=== PATIENT | male | born 1940 | race Caucasian/White ===

== ENCOUNTER 2016-12-06 20:06 | Inpatient (IN) ==
[2016-12-06] MEDS ORDERED: HUMULIN R (PARKWAY) SUBQ ONE (20:23)
--- NOTE | 2016-12-06 20:32 | EKG Report ---
Test Performed on : 12/06/2016 8:30:00 PM Test Reason : pain Blood Pressure : / mmHG Vent. Rate : 142 BPM Atrial Rate : 144 BPM P-R Int : 190 ms QRS Dur : 072 ms QT Int : 296 ms P-R-T Axes : 052 014 152 degrees QTc Int : 455 ms Sinus tachycardia. Septal infarct , age undetermined ST \T\ T wave abnormality, consider anterior ischemia Abnormal ECG No previous ECGs available Unconfirmed Result
[2016-12-06] MEDS ORDERED: LEVAQUIN 750 MG in NS 150 ML IV ONE (20:40)
[2016-12-06] MEDS: NS 1,000 ML IV PRN (20:42)
[2016-12-06] MEDS ORDERED: ROCEPHIN 1 GM/NS 1 GM/50 ML IVPB IV ONE (20:49)
[2016-12-06 20:51] LABS: BASO% 1.7 % (0.0-0.8); EOS# 0.06 X1000 (0.0-0.7); EOS% 0.4 % (0.0-10.0); HEMATOCRIT 35.5 % (42.0-52.0); HEMOGLOBIN 12.1 g/dL (14.0-18.0); IMM GRAN# 0.72 X1000 (0.0-0.04); IMM GRAN% 4.8 % (0.0-0.5); LYMPH# 1.62 X1000 (1.2-3.4); LYMPH% 10.8 % (20.5-51.1); MANUAL DIFF NEEDED? YES; MCH 31.8 PG (27-31); MCHC 34.1 g/dL (33-37); MCV 93.2 FL (81-99); MONO# 1.22 X1000 (0.11-0.59); MONO% 8.2 % (1.7-9.3); NEUT% 74.1 % (42.2-75.2); PLT 334 X1000 (130-400); RBC 3.81 XMIL (4.7-6.1)
[2016-12-06 20:58] LABS: HEMOGLOBIN A1C 7.9 % (4.8-6.0)
[2016-12-06 21:11] LABS: BANDS 4 % (0-1); EOS 1 % (1-10); LYMPHS 8 % (21-51); MONO 6 % (1-9)
[2016-12-06 21:13] LABS: ALBUMIN 2.9 g/dL (3.5-5.0); CALCIUM 9.4 mg/dL (8.8-10.2); LARGE PLATELETS OCCASIONAL; POTASSIUM 4.6 mmol/L (3.5-5.1); TOTAL BILIRUBIN 0.8 mg/dL (0.20-1.00); TOTAL PROTEIN 6.9 g/dL (6.3-8.3)
[2016-12-06] MEDS ORDERED: NS 250 ML IV ONE (22:04)
[2016-12-06] MEDS ORDERED: ZOFRAN IV PRN (22:11)
[2016-12-06] MEDS ORDERED: HUMULIN R (PARKWAY) IV ONE (22:11)
[2016-12-06] MEDS ORDERED: TYLENOL PO PRN (22:11)
[2016-12-06 22:21] LABS: BE -8.3 mmoll (-3.0-3.0); BLOOD TYPE ARTERIAL; DRAW SITE L RADIAL; O2(CT) 14.5 mL/dL (15.0-23.0); PCO2(98.6) 34 mmHg (35-45); PO2(98.6) 67 mmHg (60-100); SAMPLE BLOOD; SAO2 95.4 % (95.0-100.0); THB 11.2 g/dL (11.5-17.4); pH(98.6) 7.31 (7.35-7.45)
[2016-12-06 22:24] LABS: MODALITY CANNULA
[2016-12-06 22:25] LABS: ALLEN TEST YES
--- NOTE | 2016-12-07 00:10 | EKG Report ---
Test Performed on : 12/06/2016 11:11:40 PM Test Reason : elevated heart rate Blood Pressure : / mmHG Vent. Rate : 153 BPM Atrial Rate : 153 BPM P-R Int : 168 ms QRS Dur : 070 ms QT Int : 298 ms P-R-T Axes : 054 024 269 degrees QTc Int : 475 ms Sinus tachycardia. Marked ST abnormality, possible inferior subendocardial injury Abnormal ECG When compared with ECG of 06-DEC-2016 20:30, T wave inversion now evident in Inferior leads T wave inversion more evident in Anterior leads Confirmed by Rod Holloway MD ([id number]) on 12/23/2016 10:11:59 PM
[2016-12-07] MEDS: NS 1,000 ML IV PRN ×2 (01:12→07:21)
--- NOTE | 2016-12-07 06:12 | Diag Imaging Result Document ---
PROCEDURE NAME: CHEST-2 VIEWS - 12/06/2016 FRONTAL AND LATERAL CHEST, 2 VIEWS: COMPARISON: No comparison films. FINDINGS: There are dense infiltrates throughout the mid and lower right lung. The left lung is well expanded and clear. There is an increased AP diameter to the chest. No pleural effusions. There is a calcified granuloma anteriorly on the lateral chest. IMPRESSION: 1. Right-sided pneumonia, questionable trace right pleural fluid. 2. Emphysema.
[2016-12-07 06:51] LABS: AGAP 14; BUN 34 mg/dL (8-22); CALCIUM 8.8 mg/dL (8.8-10.2); CHLORIDE 99 mmol/L (98-107); COSMO 286; POTASSIUM 4.4 mmol/L (3.5-5.1); SODIUM 134 mmol/L (136-145); TCO2 21 mmol/L (25-35)
--- NOTE | 2016-12-07 13:29 | EKG Report ---
Test Performed on : 12/07/2016 1:20:07 PM Test Reason : cp Blood Pressure : / mmHG Vent. Rate : 105 BPM Atrial Rate : 105 BPM P-R Int : 168 ms QRS Dur : 080 ms QT Int : 304 ms P-R-T Axes : 070 053 182 degrees QTc Int : 401 ms Sinus tachycardia. Possible Anterior infarct , age undetermined Abnormal ECG When compared with ECG of 06-DEC-2016 23:11, (Unconfirmed) Borderline criteria for Anterior infarct are now present ST no longer depressed in Inferior leads ST no longer depressed in Anterior leads Nonspecific T wave abnormality has replaced inverted T waves in Inferior leads Nonspecific T wave abnormality has replaced inverted T waves in Anterolateral leads Confirmed by Rod Holloway MD ([id number]) on 12/23/2016 10:10:59 PM
[2016-12-07] MEDS ORDERED: TYLENOL WITH CODEINE #3 PO SCH (13:30)
[2016-12-07] MEDS: LANTUS INSULIN (PARKWAY) SUBQ SCH (13:33)
[2016-12-07] MEDS: PRINIVIL PO SCH (13:33)
[2016-12-07] MEDS: LOVENOX SUBQ SCH (13:33)
[2016-12-07] MEDS: TYLENOL WITH CODEINE #3 PO PRN (13:33)
[2016-12-07] MEDS: ZITHROMAX 500 MG/NS 500 MG/250 ML IVPB IV SCH (13:34)
[2016-12-07] MEDS: HUMULIN R DOSE (PARKWAY) SUBQ SCH ×3 (15:55→21:02)
--- NOTE | 2016-12-07 16:38 | HISTORY AND PHYSICAL ---
CHIEF COMPLAINT: Shortness of breath and confusion, elevated blood sugar. HISTORY OF PRESENT ILLNESS: Apparently he had been diagnosed with pneumonia as an outpatient on Wednesday and he started acting abnormally couple nights before admission and we had progressive tachycardia so he was brought in for evaluation. Initial vitals here showed tachycardia in the 150, normal blood pressure. Sugar was actually above 400 initially and clinically looked like he had early diabetic ketoacidosis. I think he was given some IV insulin but he was not started on a drip. After hydration and some further insulin his blood sugars have improved somewhat. He was also found to have a right lower lobe pneumonia and was admitted as such. PAST MEDICAL HISTORY: 1. Reported type 2 diabetes but he is not on any regular medications. 2. Hypertension. 3. Recurrent pneumonia, I believe this is his 3rd or 4th episode. 4. Parkinsonism. 5. BPH. 6. Hypertension. PAST SURGICAL HISTORY: None reported. ALLERGIES: No known drug allergies. SOCIAL HISTORY: He smoked about half a pack a day for over 50 years. He smoked more than that in the past at least a 25 pack-year history. He has 1 or 2 beers per evening. No other drug history. MEDICATIONS: He currently takes Tylenol with codeine No. 3 one p.o. q.6, Lipitor 10 daily, Sinemet 25/100 daily, Lasix 40 daily, guaifenesin 400 b.i.d., hydrochlorothiazide 25 daily, metoprolol 12.5 b.i.d., Prilosec 20 daily, Hytrin 2 daily. REVIEW OF SYSTEMS: Otherwise negative times a 10 point review of systems. PHYSICAL EXAMINATION: VITAL SIGNS: Blood pressure was 173/85, heart rate of 97, respiratory 29, temperature 98.4 degrees, 94% on 3 L. GENERALLY: Thin male, no acute distress. HEENT: Pupils equal, round, reactive to light. Extraocular movements were intact. He had poor dentition. O and P look dry. NECK: Exam was supple, no thyromegaly. CARDIOVASCULAR: Regular rate and rhythm. PULMONARY: Bilateral breath sounds with diminished throughout, rales at the right and left base although more prominent at the right base. GI: Soft, nontender, nondistended. Bowel sounds are positive. EXTREMITIES: No clubbing or cyanosis. He had trace edema. SKIN EXAM: He had chronic venous changes to his lower extremities or brawny changes consistent with chronic venous stasis. He had onychomycosis. NEURO: Was overall unremarkable. LABORATORY DATA: White count of 14, hemoglobin and hematocrit 12 and 35. CMP looked okay, pH 7.31, pCO2 36, PaO2 67, acetone level was moderate. Chest x-ray showed right lower lobe airspace disease with possible effusion. PROBLEM LIST: This is a 75-year-old male with history of diabetes, hypertension presenting with pneumonia and diabetic ketoacidosis at least initially that has since resolved. 1. Right lower lobe pneumonia, possibly some upper lobe changes as well. We will continue Rocephin, add azithromycin. Continue pulmonary toilet and follow clinically. Will need DVT and GI prophylaxis. Will evaluate with speech therapy to evaluate for dysphagia since this was a recurrent pneumonia issue. 2. Uncontrolled diabetes. Unclear if he is on regular medications but we will initiate Lantus and follow. The DKA portion has resolved. 3. Parkinsonism. Continue Sinemet and follow. 4. Hypertension. Will add ASHLEY inhibitor and monitor his renal function. 5. Acute kidney injury. Will continue IV fluids and monitor urine output. Again that has resolved. 6. Disposition pending his clinical course. This is a [facility] patient. cc: Joss Bronson MD
[2016-12-07] MEDS: ROCEPHIN 1 GM/NS 1 GM/50 ML IVPB IV SCH (21:02)
[2016-12-07] MEDS: LIPITOR PO SCH (21:02)
[2016-12-07] MEDS: MUCINEX PO SCH (21:02)
[2016-12-07] MEDS: LOPRESSOR PO SCH (21:02)
[2016-12-08] MEDS: NS 1,000 ML IV PRN ×2 (01:01→21:04)
[2016-12-08] MEDS: PRILOSEC PO SCH (06:18)
[2016-12-08] MEDS: HUMULIN R DOSE (PARKWAY) SUBQ SCH ×4 (06:18→21:04)
[2016-12-08 06:27] LABS: HEMATOCRIT 33.4 % (42.0-52.0); HEMOGLOBIN 11.4 g/dL (14.0-18.0); MCH 31.4 PG (27-31); MCHC 34.1 g/dL (33-37); MPV 10.9 FL (7.4-10.4); RBC 3.63 XMIL (4.7-6.1)
[2016-12-08 06:29] LABS: AGAP 14; BUN 19 mg/dL (8-22); CALCIUM 8.6 mg/dL (8.8-10.2); CHLORIDE 104 mmol/L (98-107); COSMO 285; POTASSIUM 4.4 mmol/L (3.5-5.1); SODIUM 139 mmol/L (136-145); TCO2 21 mmol/L (25-35)
[2016-12-08] MEDS: LOPRESSOR PO SCH ×2 (08:31→22:45)
[2016-12-08] MEDS: HYTRIN PO SCH (08:31)
[2016-12-08] MEDS: MUCINEX PO SCH ×2 (08:32→21:03)
[2016-12-08] MEDS: PRINIVIL PO SCH (08:32)
[2016-12-08] MEDS: LANTUS INSULIN (PARKWAY) SUBQ SCH (08:32)
[2016-12-08] MEDS: SINEMET 25/100 PO SCH (08:32)
--- NOTE | 2016-12-08 08:53 | PROGRESS NOTE ---
DATE: 12/08/2016 SUBJECTIVE: The patient notes that he is feeling better. He is having less cough. He is still short of breath. Notes that he gets tired even moving around in the bed. OBJECTIVE/PHYSICAL EXAMINATION: Vital signs: Temp 97, pulse 98, respiratory 27 to 38, BP 155/74, sat 94% on 3 L. General: The patient is awake, alert. He is currently in moderate respiratory distress. He is pleasant to talk with. Neck: Supple. CV: Regular rate. Chest: Decreased breath sounds but equal bilaterally, no wheezing noted. Abdomen: Soft, nondistended. Extremities: He moves all extremities. Neurological: No changes. LABS: WBC is 13. CMP essentially normal. ASSESSMENT: 1. Diabetic ketoacidosis appears resolved. Blood sugars in the 198-200 range. 2. Right lower lobe pneumonia. 3. Hypoxic respiratory failure. 4. Parkinsonism. 5. Hypertension. 6. Acute kidney injury, resolved, creatinine back to his baseline. PLAN: Will keep patient in the ICU today. Will continue to follow. Continue pulmonary toilet. Continue antibiotics. Certainly would want to place him on steroids. However, given his recent DKA, this is not a good option. We will continue to follow. Further orders as needed. cc: Johnny Perez MD
[2016-12-08] MEDS: ZITHROMAX 500 MG/NS 500 MG/250 ML IVPB IV SCH (12:15)
[2016-12-08] MEDS: LOVENOX SUBQ SCH (12:43)
[2016-12-08] MEDS ORDERED: ADENOCARD ONE ×2 (17:19→17:31)
[2016-12-08] MEDS ORDERED: LOPRESSOR PO SCH ×3 (18:00→20:00)
[2016-12-08] MEDS ORDERED: ADENOCARD IV ONE ×2 (18:05)
--- NOTE | 2016-12-08 18:16 | EKG Report ---
Test Performed on : 12/08/2016 5:13:39 PM Test Reason : tachycardia Blood Pressure : / mmHG Vent. Rate : 172 BPM Atrial Rate : 174 BPM P-R Int : 000 ms QRS Dur : 068 ms QT Int : 268 ms P-R-T Axes : 000 060 264 degrees QTc Int : 453 ms Supraventricular tachycardia. Marked ST abnormality, possible inferior subendocardial injury Marked ST abnormality, possible anteroseptal subendocardial injury Abnormal ECG When compared with ECG of 07-DEC-2016 13:20, (Unconfirmed) Vent. rate has increased BY [address] now depressed in Inferior leads ST now depressed in Anterior leads Inverted T waves have replaced nonspecific T wave abnormality in Inferior leads Inverted T waves have replaced nonspecific T wave abnormality in Anterolateral leads Confirmed by Rod Holloway MD ([id number]) on 12/23/2016 10:10:05 PM
--- NOTE | 2016-12-08 18:19 | EKG Report ---
Test Performed on : 12/08/2016 5:35:46 PM Test Reason : svt Blood Pressure : / mmHG Vent. Rate : 171 BPM Atrial Rate : 171 BPM P-R Int : 000 ms QRS Dur : 072 ms QT Int : 230 ms P-R-T Axes : 000 068 248 degrees QTc Int : 387 ms Supraventricular tachycardia. Marked ST abnormality, possible inferior subendocardial injury Marked ST abnormality, possible anterior subendocardial injury Abnormal ECG When compared with ECG of 08-DEC-2016 17:13, (Unconfirmed) No significant change was found Confirmed by Rod Holloway MD ([id number]) on 12/23/2016 10:09:52 PM
--- NOTE | 2016-12-08 18:19 | EKG Report ---
Test Performed on : 12/08/2016 5:51:23 PM Test Reason : convert svt Blood Pressure : / mmHG Vent. Rate : 117 BPM Atrial Rate : 117 BPM P-R Int : 162 ms QRS Dur : 072 ms QT Int : 320 ms P-R-T Axes : 071 069 -54 degrees QTc Int : 446 ms Sinus tachycardia. with premature supraventricular complexes. Marked ST abnormality, possible inferior subendocardial injury Abnormal ECG When compared with ECG of 08-DEC-2016 17:35, (Unconfirmed) premature supraventricular complexes. are now present Nonspecific T wave abnormality has replaced inverted T waves in Inferior leads Confirmed by Rod Holloway MD ([id number]) on 12/23/2016 10:09:44 PM
[2016-12-08] MEDS ORDERED: LOVENOX SUBQ ONE (18:45)
[2016-12-08] MEDS: ROCEPHIN 1 GM/NS 1 GM/50 ML IVPB IV SCH (21:03)
[2016-12-08] MEDS: LIPITOR PO SCH (21:03)
[2016-12-09 06:24] LABS: HEMATOCRIT 33.5 % (42.0-52.0); HEMOGLOBIN 11.4 g/dL (14.0-18.0); MCH 31.4 PG (27-31); MCV 92.3 FL (81-99); MPV 11.1 FL (7.4-10.4); RBC 3.63 XMIL (4.7-6.1)
[2016-12-09] MEDS: LOPRESSOR PO SCH ×5 (06:27→23:35)
[2016-12-09] MEDS: HUMULIN R DOSE (PARKWAY) SUBQ SCH ×4 (06:28→20:59)
[2016-12-09] MEDS: PRILOSEC PO SCH (06:28)
[2016-12-09 06:51] LABS: AGAP 14; BUN 12 mg/dL (8-22); CALCIUM 8.3 mg/dL (8.8-10.2); CHLORIDE 101 mmol/L (98-107); COSMO 281; MAGNESIUM 1.5 mg/dL (1.5-2.7); POTASSIUM 4.3 mmol/L (3.5-5.1); SODIUM 137 mmol/L (136-145); TCO2 22 mmol/L (25-35)
--- NOTE | 2016-12-09 07:24 | EKG Report ---
Test Performed on : 12/09/2016 07:22:17 AM Test Reason : tachycardia Blood Pressure : / mmHG Vent. Rate : 152 BPM Atrial Rate : 147 BPM P-R Int : 000 ms QRS Dur : 066 ms QT Int : 268 ms P-R-T Axes : 000 006 263 degrees QTc Int : 426 ms Atrial fibrillation. with rapid ventricular response. Marked ST abnormality, possible inferior subendocardial injury Marked ST abnormality, possible anterior subendocardial injury Abnormal ECG When compared with ECG of 08-DEC-2016 17:51, (Unconfirmed) Atrial fibrillation. has replaced Sinus rhythm. Questionable change in QRS axis ST more depressed in Inferior leads Inverted T waves have replaced nonspecific T wave abnormality in Inferior leads T wave inversion more evident in Anterior leads Confirmed by Rod Holloway MD ([id number]) on 12/23/2016 10:08:59 PM
[2016-12-09] MEDS ORDERED: CARDIZEM IV ONE (07:45)
--- NOTE | 2016-12-09 08:26 | PROGRESS NOTE ---
DATE: 12/09/2016 SUBJECTIVE: The patient had a significant episode yesterday of multifocal PVCs, multifocal atrial fibrillation. He was given adenosine and seemed to convert. He has been watched overnight. He did not have any further episodes until early this morning. He currently denies any chest pain or palpitations. Denies any shortness of breath. States that he is feeling okay. PHYSICAL EXAMINATION: Vital Signs: Temperature 97.3, pulse 81, respiratory rate 13, BP 158/73, saturations 95% on 3 L. General: Patient is awake, alert. He is in no distress. CV: Regular rate, although shortly after the initial exam, was noted to be irregular rate, irregular rhythm with a heart rate of 180 as opposed to where he was all night in the low 70s to mid 80s. Chest: Decreased breath sounds but equal bilaterally. Abdomen: Soft. Extremities: Moves all extremities. Neurologic: no changes. LABS: Reviewed. Cardiac enzymes this a.m. with a total CK at 28 and a troponin at 0.017. ASSESSMENT: 1. Atrial fibrillation with rapid ventricular response. He was given 1 dose of oral Cardizem. If this does not get his heart rate back under control, then we will start him on a Cardizem drip. 2. Right lower lobe pneumonia, likely contributing to his atrial fibrillation. 3. Uncontrolled diabetes. 4. Parkinsonism. 5. Hypertension. 6. Acute kidney injury, resolved. 7. Diabetes. PLAN: We will continue to follow. I appreciate cardiology's input. Continue antibiotics. Further orders as needed. cc: Johnny Perez MD
[2016-12-09] MEDS: LANTUS INSULIN (PARKWAY) SUBQ SCH (09:12)
[2016-12-09] MEDS: SINEMET 25/100 PO SCH (09:12)
[2016-12-09] MEDS: CARDIZEM 100 MG/NS 100 MG/100 ML IVPB IV SCH ×2 (09:12→15:17)
[2016-12-09] MEDS: MUCINEX PO SCH ×2 (09:12→21:00)
[2016-12-09] MEDS ORDERED: LANOXIN IV ONE (11:26)
[2016-12-09] MEDS: ZITHROMAX 500 MG/NS 500 MG/250 ML IVPB IV SCH (13:17)
--- NOTE | 2016-12-09 17:24 | CONSULTATION ---
DATE OF CONSULTATION: 12/09/2016 INDICATION: Arrhythmia. HISTORY OF PRESENT ILLNESS: Mr. Schulz is a 75-year-old, white male with a history of diabetes, hypertension. He presented for evaluation of shortness of breath as well as confusion. He apparently had an outpatient diagnosis of pneumonia and issues with tachycardia at home. Since presentation, he has been put on antibiotics and actually feels like his breathing has improved. He had developed some issues with tachycardia during this hospitalization and was initiated on a diltiazem infusion as well as receiving some doses of adenosine. Since developing that narrow complex tachycardia, he has converted back into a sinus rhythm. That was around 4:30 this afternoon. The patient denies any episodic heart racing. No palpitations. Again, he said during this entire time period, his breathing has actually improved. He has not been febrile during this hospitalization. He is not having any chest pain. He is tolerating oral intake. PAST MEDICAL HISTORY: 1. Significant for likely type 2 diabetes. 2. Hypertension. 3. Issues with pneumonia. 4. Parkinson's. 5. BPH. 6. Hypertension. SOCIAL HISTORY: is present at bedside. He smokes around half a pack a day for around 50 years. He drinks 1-2 beers in the evening. No other drug history that he is aware of. REVIEW OF SYSTEMS: A 10 system review of systems is negative except for those things mentioned in HPI. PHYSICAL EXAMINATION: Vital Signs: During this hospitalization he has been afebrile. His heart rate most recently was in the 70s. He appears to be in sinus currently but prior to this he has had heart rates up as high as into the 170s and since early this morning, his heart rates have been in the 150-160s frequently. His blood pressure is 128/57. General: He is in no acute distress. He is very pleasant. HEENT: Oropharynx is moist. Normal dentition. His eye examination is pink. Conjunctivae white sclerae. Neck: Examination shows no obvious thyromegaly or thyroid tenderness. Cardiovascular: He sounds to be in a regular rate and rhythm. He has trace bilateral lower extremity edema with warm and well-perfused extremities. He has evidence for chronic venous stasis with skin changes noted. His JVP does not appear to be elevated. Chest: Notable for basilar rales bilaterally. No increased work of breathing. Abdomen: Soft, nontender, nondistended. He has no obvious organomegaly. Skin Exam: Warm and dry throughout without any rashes. Neurological: He is moving all extremities well. He is nonfocal. He has no lateralizing deficits. Psychiatric: He is alert, oriented, pleasant. He has normal mood and affect. PERTINENT DATA: He had a chest x-ray performed on the demonstrating a right-sided pneumonia with questionable trace right-sided pleural fluid. Emphysema is present. His EKGs were reviewed and showed narrow complex tachycardia, suggestion of atrial fibrillation. He also had telemetry strips with the administration of adenosine, and did not appear to have any appreciable organized atrial activity during those infusions. His white count is 11.8, his hematocrit is 32.5, his white platelet count is 321. Sodium 137, potassium 4.3, BUN 12, creatinine 0.6. Mag level is 1.5. His troponin is 0.017. ASSESSMENT: 1. Supraventricular arrhythmia, likely atrial fibrillation. 2. Pneumonia. PLAN: Patient has converted over into sinus. I will continue him on the infusion overnight and change it over to oral at 180 mg long-acting. We will continue him on his metoprolol for now. Given his history of age greater than 75, hypertension and diabetes, he has at least a CHADS-VASc score of 4. We will consider initiating oral anticoagulation in the future. I have ordered an echo. I will order a TSH as well. I would continue with rate-controlling medicines as you have him presently. cc: Gaetano Spicer MD
[2016-12-09] MEDS: LOVENOX SUBQ SCH (17:37)
--- NOTE | 2016-12-09 18:17 | EKG Report ---
Test Performed on : 12/09/2016 4:28:00 PM Test Reason : rhythm change Blood Pressure : / mmHG Vent. Rate : 070 BPM Atrial Rate : 070 BPM P-R Int : 140 ms QRS Dur : 070 ms QT Int : 406 ms P-R-T Axes : 065 026 -49 degrees QTc Int : 438 ms Sinus rhythm. with premature atrial complexes. ST \T\ T wave abnormality, consider anterior ischemia Abnormal ECG When compared with ECG of 09-DEC-2016 07:22, (Unconfirmed) Sinus rhythm. has replaced Atrial fibrillation. Vent. rate has decreased BY [address] less depressed in Inferior leads ST no longer depressed in Anterolateral leads Nonspecific T wave abnormality has replaced inverted T waves in Inferior leads Confirmed by Rod Holloway MD ([id number]) on 12/23/2016 10:08:31 PM
[2016-12-09] MEDS: LIPITOR PO SCH (21:00)
[2016-12-09] MEDS: ROCEPHIN 1 GM/NS 1 GM/50 ML IVPB IV SCH (21:00)
[2016-12-10] MEDS: LOPRESSOR PO SCH ×4 (05:28→22:39)
[2016-12-10] MEDS: HUMULIN R DOSE (PARKWAY) SUBQ SCH ×4 (06:28→20:22)
--- NOTE | 2016-12-10 06:36 | EKG Report ---
Test Performed on : 12/10/2016 05:57:52 AM Test Reason : A.FIB PROTOCOL Blood Pressure : / mmHG Vent. Rate : 077 BPM Atrial Rate : 077 BPM P-R Int : 134 ms QRS Dur : 074 ms QT Int : 394 ms P-R-T Axes : 000 047 -57 degrees QTc Int : 445 ms Sinus rhythm. with occasional premature ventricular complexes. and premature atrial complexes. ST \T\ T wave abnormality, consider anterior ischemia Abnormal ECG When compared with ECG of 09-DEC-2016 16:28, (Unconfirmed) premature ventricular complexes. are now present Confirmed by Rod Holloway MD ([id number]) on 12/23/2016 10:08:18 PM
[2016-12-10] MEDS: PRILOSEC PO SCH (06:42)
--- NOTE | 2016-12-10 08:43 | PROGRESS NOTE ---
DATE: 12/10/2016 SUBJECTIVE: The patient notes that he is feeling much better this morning. Notes that his breathing is easier. He denies any chest pain, palpitations. He denies any fevers, chills over night. PHYSICAL: Temperature 98, pulse 82, respiratory 27. BP 187/85. Saturation 97% on 30% venturi mask. HEENT: Normocephalic. Neck: Supple. CV: Regular rate. No appreciable murmurs. Chest: Much more clear although decreased breath sounds bilaterally. Abdomen soft. Extremities: Moves all extremities. Neurologic: No changes. LABORATORY DATA: Pending. ASSESSMENT: 1. Atrial fibrillation with rapid ventricular rate. Currently, the patient is back to sinus rhythm. We will stop his diltiazem. We will only place him on Cardizem CD 120 as he has been on 2 mics of Cardizem overnight. 2. High cholesterol. 3. Chronic obstructive pulmonary disease with moderate exacerbation. 4. Right lower lobe pneumonia. Continue antibiotics. 5. Acute kidney injury, stable. 6. Hypertension. 7. Parkinsonism. PLAN: As noted above. We will change him over to Cardizem, continue sliding scale insulin. Further orders as needed. cc: Johnny Perez MD
[2016-12-10] MEDS ORDERED: CARDIZEM CD PO SCH (09:00)
[2016-12-10] MEDS: TYLENOL WITH CODEINE #3 PO PRN ×3 (09:04→22:39)
[2016-12-10] MEDS: MUCINEX PO SCH ×2 (09:04→20:22)
[2016-12-10] MEDS: SINEMET 25/100 PO SCH (09:04)
[2016-12-10] MEDS: LANTUS INSULIN (PARKWAY) SUBQ SCH (09:05)
[2016-12-10] MEDS: PRINIVIL PO SCH (11:22)
[2016-12-10] MEDS: ELIQUIS PO SCH ×2 (11:22→20:22)
[2016-12-10] MEDS: ZITHROMAX 500 MG/NS 500 MG/250 ML IVPB IV SCH (13:57)
--- NOTE | 2016-12-10 15:42 | ECHO REPORT ---
ORDER DATE: 12/10/2016 INDICATIONS: Atrial fibrillation. FINDINGS: 1. Right atrium appears normal in size at 3.4 cm. 2. Trace tricuspid regurgitation. RV systolic pressure of 25. 3. Normal RV size and systolic function. 4. No significant pulmonic insufficiency. 5. Mild left atrial enlargement at 4.6 cm. 6. No mitral prolapse. Trace mitral regurgitation. 7. Normal LV size, end-diastolic dimension of 4.6. Suggestion of borderline left ventricular hypertrophy with a posterior and interventricular septal wall thickness of 1.1 and 1.3 cm, respectively. Normal to hyperdynamic LV systolic function. The estimated EF is greater than 70%. No obvious segmental wall motion abnormalities. 8. Aortic valve opens well. No evidence of stenosis or insufficiency. 9. Aorta appears normal in visualized segments. 10. No pericardial effusion seen. cc: Gaetano Spicer MD
[2016-12-10] MEDS: NS 1,000 ML IV PRN (15:46)
[2016-12-10] MEDS: LOVENOX SUBQ SCH (18:10)
[2016-12-10] MEDS: LIPITOR PO SCH (20:22)
[2016-12-10] MEDS: ROCEPHIN 1 GM/NS 1 GM/50 ML IVPB IV SCH (20:23)
[2016-12-10] MEDS ORDERED: CARDIZEM PO ONE (21:00)
[2016-12-11] MEDS: NS 1,000 ML IV PRN (05:35)
[2016-12-11] MEDS: LOPRESSOR PO SCH ×4 (05:36→22:05)
[2016-12-11] MEDS: TYLENOL WITH CODEINE #3 PO PRN ×3 (05:43→20:47)
--- NOTE | 2016-12-11 05:56 | EKG Report ---
Test Performed on : 12/11/2016 05:38:01 AM Test Reason : A.FIB PROTOCOL Blood Pressure : / mmHG Vent. Rate : 065 BPM Atrial Rate : 065 BPM P-R Int : 146 ms QRS Dur : 076 ms QT Int : 494 ms P-R-T Axes : 065 057 059 degrees QTc Int : 513 ms Normal sinus rhythm. with sinus arrhythmia. T wave abnormality, consider anterolateral ischemia Prolonged QT Abnormal ECG When compared with ECG of 10-DEC-2016 05:57, (Unconfirmed) premature ventricular complexes. are no longer present premature atrial complexes. are no longer present QT has lengthened Confirmed by Rod Holloway MD ([id number]) on 12/23/2016 10:07:20 PM
[2016-12-11 05:58] LABS: HEMATOCRIT 32.4 % (42.0-52.0); HEMOGLOBIN 10.7 g/dL (14.0-18.0); MCH 31.3 PG (27-31); MCV 94.7 FL (81-99); MPV 10.8 FL (7.4-10.4); RBC 3.42 XMIL (4.7-6.1)
[2016-12-11 06:25] LABS: AGAP 10; ALBUMIN 2.5 g/dL (3.5-5.0); ALKALINE PHOSPHATASE 374 U/L (32-122); BUN 11 mg/dL (8-22); CHLORIDE 103 mmol/L (98-107); COSMO 279; GOT 45 U/L (10-34); GPT 42 U/L (10-44); MAGNESIUM 1.4 mg/dL (1.5-2.7); POTASSIUM 3.4 mmol/L (3.5-5.1); SODIUM 139 mmol/L (136-145); TCO2 26 mmol/L (25-35); TOTAL PROTEIN 5.7 g/dL (6.3-8.3)
[2016-12-11] MEDS: PRILOSEC PO SCH (07:00)
[2016-12-11] MEDS: HUMULIN R DOSE (PARKWAY) SUBQ SCH (07:00)
[2016-12-11] MEDS ORDERED: MAGNESIUM SULFATE 2 GM/S.W.I. 2 GM/50 ML IVPB IV ONE (08:17)
[2016-12-11] MEDS: ELIQUIS PO SCH ×2 (09:05→20:37)
[2016-12-11] MEDS: CARDIZEM CD PO SCH (09:06)
[2016-12-11] MEDS: LANTUS INSULIN (PARKWAY) SUBQ SCH (09:07)
[2016-12-11] MEDS: MUCINEX PO SCH ×2 (09:07→20:37)
[2016-12-11] MEDS: HYTRIN PO SCH (09:07)
[2016-12-11] MEDS: SINEMET 25/100 PO SCH (09:07)
[2016-12-11] MEDS: PRINIVIL PO SCH (09:07)
--- NOTE | 2016-12-11 09:15 | PROGRESS NOTE ---
DATE: 12/11/2016 SUBJECTIVE: The patient notes that he has an increased cough this morning. He is having some shortness of breath. He denies any chest pains or palpitations. He denies any fevers or chills. He denies any GI or issues otherwise. OBJECTIVE: Vital signs: Vital signs are reviewed. Temperature is 98, pulse 63, respiratory 20, blood pressure 128/59, and saturation 96% on 3 L. General: The patient is awake, alert, and currently in no respiratory distress. Speech appears regular. Memory appears much more intact than on previous exams. HEENT: Normocephalic. NECK: Supple. CV: Regular rate. Chest: Clear. Abdomen: Soft. Extremities: Moves all extremities. Neuro: No changes. LABS: Magnesium 1.4, glucose 132, potassium 3.4, and albumin 2.5. ASSESSMENT: 1. Moderate protein calorie malnutrition. 2. Hypomagnesemia. 3. Gram-negative rods in sputum. 4. Right lower lobe pneumonia likely secondary to the gram-negative rods. Continue to wait for culture. 5. Diabetes, much better controlled. 6. Parkinsonism. 7. Hypertension. 8. Acute hypoxic respiratory failure, continues to improve. 9. Atrial fibrillation, currently back to sinus rhythm. PLAN: We will continue to attempt to wean his oxygen. We will replace his magnesium and recheck in the a.m.. Cardiology has placed him on Eliquis therefore we will stop his Lovenox. His Cardizem has apparently been increased to 240 mg this morning from 180 mg yesterday. We will follow his heart rates closely as his heart rates have been in the low 60s and 50s. We will continue physical therapy. Hopefully home in the next few days. cc: Johnny Perez MD
[2016-12-11] MEDS: HUMULIN R (PARKWAY) SUBQ SCH ×3 (11:58→20:41)
[2016-12-11] MEDS: ZITHROMAX 500 MG/NS 500 MG/250 ML IVPB IV SCH (12:41)
[2016-12-11] MEDS: DUONEB (A & A) INH PRN (19:52)
[2016-12-11] MEDS: ROCEPHIN 1 GM/NS 1 GM/50 ML IVPB IV SCH (20:37)
[2016-12-11] MEDS: LIPITOR PO SCH (20:37)
[2016-12-12] MEDS: LOPRESSOR PO SCH ×3 (04:39→16:14)
[2016-12-12] MEDS: PRILOSEC PO SCH (06:07)
[2016-12-12] MEDS: HUMULIN R (PARKWAY) SUBQ SCH ×3 (06:08→16:13)
[2016-12-12 06:09] LABS: HEMATOCRIT 31.8 % (42.0-52.0); HEMOGLOBIN 10.2 g/dL (14.0-18.0); MCH 30.4 PG (27-31); MCHC 32.1 g/dL (33-37); MCV 94.9 FL (81-99); RBC 3.35 XMIL (4.7-6.1)
[2016-12-12 06:50] LABS: AGAP 9; ALBUMIN 2.3 g/dL (3.5-5.0); ALKALINE PHOSPHATASE 365 U/L (32-122); BUN 16 mg/dL (8-22); CALCIUM 8.1 mg/dL (8.8-10.2); CHLORIDE 105 mmol/L (98-107); COSMO 284; GOT 53 U/L (10-34); GPT 37 U/L (10-44); MAGNESIUM 1.9 mg/dL (1.5-2.7); SODIUM 139 mmol/L (136-145); TCO2 26 mmol/L (25-35); TOTAL PROTEIN 5.3 g/dL (6.3-8.3)
[2016-12-12] MEDS: DUONEB (A & A) INH PRN ×3 (07:43→15:19)
--- NOTE | 2016-12-12 08:05 | EKG Report ---
Test Performed on : 12/12/2016 04:13:47 AM Test Reason : A.FIB PROTOCOL Blood Pressure : / mmHG Vent. Rate : 060 BPM Atrial Rate : 060 BPM P-R Int : 162 ms QRS Dur : 072 ms QT Int : 414 ms P-R-T Axes : 073 046 -57 degrees QTc Int : 414 ms Normal sinus rhythm. ST \T\ T wave abnormality, consider anterior ischemia Abnormal ECG When compared with ECG of 11-DEC-2016 05:38, (Unconfirmed) QT has shortened Confirmed by Rod Holloway MD ([id number]) on 12/23/2016 10:07:03 PM
[2016-12-12] MEDS ORDERED: ZITHROMAX PO SCH (09:00)
[2016-12-12] MEDS ORDERED: LEVAQUIN PO SCH (09:15)
[2016-12-12] MEDS: MUCINEX PO SCH (09:25)
[2016-12-12] MEDS: ELIQUIS PO SCH (09:25)
[2016-12-12] MEDS: HYTRIN PO SCH (09:26)
[2016-12-12] MEDS: SINEMET 25/100 PO SCH (09:26)
[2016-12-12] MEDS: PRINIVIL PO SCH (09:26)
[2016-12-12] MEDS: TYLENOL WITH CODEINE #3 PO PRN (09:26)
[2016-12-12] MEDS: LANTUS INSULIN (PARKWAY) SUBQ SCH (09:27)
[2016-12-12] MEDS: CARDIZEM CD PO SCH (09:27)
[2016-12-12 15:47] VITALS: BP 109/54
--- NOTE | 2016-12-12 22:24 | DISCHARGE SUMMARY ---
ADMISSION DATE: 12/06/2016 DISCHARGE DATE: 12/12/2016 DISCHARGE DIAGNOSES: 1. Right lower lobe pneumonia improved. 2. Hypoxemia. 3. Diabetes better control. 4. Parkinsonism. 5. Hypertension. 6. Multifocal premature ventricular contractions with atrial fibrillation currently sinus rhythm on Cardizem. CONSULTATIONS: Dr. Spicer. PROCEDURES: None. BRIEF HOSPITAL COURSE: Patient is a 76-year-old male who was admitted as noted on the HPI. Treated in usual fashion. Placed on antibiotics. He did go into atrial fibrillation while he was in the hospital. He was converted back to sinus chemically with Cardizem, currently is on 240 of Cardizem daily as well as Eliquis 5. He thankfully had uneventful hospital course. He was able to continue to improve. On discharge he was alert, oriented, he was in no distress. He was ambulating the whalen without much difficulty. Blood sugars were better controlled in the 180 to low 200 range. DISPOSITION: The patient will be discharged home. Will continue calcium orally, continue Lantus 10 mg, Cardizem 240 once a day, Toprol 25 three times a day, Eliquis 5 mg twice daily, Lipitor 10 at bedtime and lisinopril 20. TIME SPENT: Thirty-five minutes was spent in discharge planning and instructions. FOLLOWUP=: He will follow up with his primary care in 1-2 weeks. cc: Johnny Perez MD
--- NOTE | 2016-12-23 01:53 | PROVIDER DOCUMENTATION ---
This chart was entered by Georgia Lua Scribe, acting as scribe for Casey Nguyễn MD. HPI-General Adult - General Chief Complaint: Shortness of Breath Stated Complaint: SOB Time Seen by Provider: 12/06/16 20:13 Source: patient Allergies/Adverse Reactions: Patient Allergies Allergy/AdvReac Type Severity Reaction Status Date / Time No Known Allergies Allergy Verified 12/07/16 08:01 Home Medications: Home Medication List Medication Instructions Recorded Confirmed Last Taken Type ATORVAstatin [Lipitor] 10 mg PO DAILY 12/06/16 12/06/16 Unknown History Acetaminophen with Codeine 1 each PO Q6H 12/06/16 12/06/16 Unknown History [Acetaminophen-Cod #3 Tablet] Carbidopa/Levodopa 1 dose PO DAILY 12/06/16 12/07/16 Unknown History [Carbidopa-Levodopa 25-100 Tab] Furosemide 40 mg PO DAILY PRN 12/06/16 12/06/16 Unknown History Guaifenesin 400 mg PO BID 12/06/16 12/06/16 Unknown History Hydrochlorothiazide 25 mg PO DAILY 12/06/16 12/06/16 Unknown History Metoprolol Tartrate 12.5 mg PO BID 12/06/16 12/06/16 Unknown History Terazosin [Hytrin] 2 mg PO QHS 12/06/16 12/07/16 Unknown History Amoxicillin/Pot Clavulanate 500 mg PO BID 12/07/16 12/07/16 Unknown History [Augmentin] Diclofenac 1% Gel [Voltaren 1% Gel] 2 gm TOP 4XDAY 12/07/16 12/07/16 Unknown History Omeprazole [Prilosec] 40 mg PO QAM 12/07/16 12/07/16 Unknown History Apixaban [Eliquis] 5 mg PO BID #60 tablet 12/12/16 Unknown Rx Diltiazem C.d. [Cardizem Cd] 240 mg PO DAILY #30 capsule 12/12/16 Unknown Rx Insulin Glargine,Hum.rec.anlog 10 unit SQ QHS #5 insuln.pen 12/12/16 Unknown Rx [Lantus Solostar] LISINOpril [Prinivil] 20 mg PO DAILY #30 tablet 12/12/16 Unknown Rx Levofloxacin [Levaquin] 500 mg PO DAILY #7 tablet 12/12/16 Unknown Rx Metoprolol [Lopressor] 25 mg PO Q8H #90 tablet 12/12/16 Unknown Rx - History of Present Illness -Gen Adult Nature of Presenting Problems: PT IS A 75YOM PRESENTING TO THE ED C/O AMS. PT IS BEING TREATED FOR PNEUMONIA AT THIS TIME. TODAY HE BECAME ALTERED. PT IS TACHYCARDIC WITH MILD SOB AND SWELLING. NO OTHER COMPLAINTS NOTED Location of Pain/Injury: reports: none Pain Radiation: reports: no radiation Quality of Pain: reports: none Severity: reports: moderate Onset/Duration: reports: just prior to arrival Timing: reports: still present, intermittent Context/Activities at Onset: reports: light activity Modifying Factors: improves with: other medication, palpation Associated Symptoms: reports: cough, shortness of breath, weakness. denies: back/neck pain, chest pain, constipation, fever/chills, nausea, syncope, vomiting, trouble walking Similar Symptoms Previously?: No Recently seen or treated by another doctor?: No Review of Systems - Adult - REVIEW OF SYSTEMS - ADULT Constitutional: reports: no symptoms reported Eyes: reports: no symptoms reported Ears, Nose, Mouth & Throat: reports: no symptoms reported Cardiovascular: reports: see HPI, edema, irregular heart rate, palpitations Respiratory: reports: see HPI, cough, excessive sputum production, shortness of breath Gastrointestinal: reports: no symptoms reported Genitourinary: reports: no symptoms reported Musculoskeletal: reports: no symptoms reported Integumentary: reports: no symptoms reported Neurological: reports: no symptoms reported Psychiatric: reports: no symptoms reported Endocrine: reports: no symptoms reported Hematologic/Lymphatic: reports: no symptoms reported Allergic/Immunologic: reports: no symptoms reported All Other Systems: Reviewed and Negative Past History - Adult - PAST MEDICAL HISTORY-ADULT Review of Records: reports: Old Records Reviewed, Nursing Assessment Review, Medications Reviewed, Social history reviewed & non-contributory. Major Childhood Illnesses: reports: denies history Cardiovascular: reports: denies history Respiratory: reports: denies history Gastrointestinal: reports: denies history Obstetrical/Gynecological: reports: denies history Genitourinary: reports: denies history Musculoskeletal: reports: denies history Neurological: reports: denies history Endocrine/Immune: reports: denies history Other Conditions: reports: denies history - IMMUNIZATION STATUS Childhood Immunizations: See Nurse Assessment Flu Vaccine: See Nurse Assessment - FAMILY HISTORY Family History: reviewed, not pertinent - SOCIAL HISTORY Smoking: denies, non-smoker Substance Use: none/never, denies Alcohol Use Frequency: never Living Situation: family Physical Exam-General - PHYSICAL EXAM-ADULT Initial Vital Signs Reviewed: Yes - CONSTITUTIONAL General Appearance: alert, moderate distress, anxious. negative: appears well, no apparent distress - EYES Eyes: PERRL/EOMI, pink conjunctivae - HEAD, EARS, NOSE, MOUTH & THROAT HENMT: normocephalic/atraumatic, moist mucous membranes, normal ENT inspection, TMs normal, pharynx normal - NECK Neck: non-tender, full range of motion, supple, normal inspection - RESPIRATORY Respiratory: chest non-tender, no pleuratic chest pain, no accessory muscle use , respiratory distress, decreased breath sounds, rales (BILATERAL), dull on percussion, increased rate. negative: lungs clear, normal breath sounds, no respiratory distress - CARDIOVASCULAR Cardiovascular: normal peripheral pulses, no gallop, no JVD, no murmur, tachycardia, other (2+ PITTING BILATERAL ANKLE EDEMA). negative: regular rate, rhythm, no edema - GASTROINTESTINAL (ABDOMEN) Abdominal Exam: normal bowel sounds, non tender, soft, no organomegaly, no pulsatile mass - LYMPHATIC Lymphatic: no adenopathy - MUSCULOSKELETAL Back Exam: normal inspection, no CVA tenderness, no vertebral tenderness Extremity: normal range of motion, non-tender, no calf tenderness, normal capillary refill, pelvis stable, pedal edema (2+ PITTING), swelling. negative: normal gait, normal inspection, no pedal edema - SKIN Integumentary: normal color, normal turgor, warm/dry - NEUROLOGIC Neurologic: home health registered nurse II-XII nml as tested, grossly normal, no motor/sensory deficits - PSYCHIATRIC Psych/Mental Status: normal mood/affect, normal thought content, normal thought process, oriented x 3 Progress - PLAN OF CARE/RESULTS Progress/Plan/Lab Results: Vital Signs - 8 hr 12/06/16 20:09 12/06/16 20:34 12/06/16 21:48 Temperature 99.5 F Pulse Rate 141 H 150 H Respiratory Rate 36 H 26 H Blood Pressure 124/088 130/67 O2 Sat by Pulse Oximetry 99 96 94 L 12/06/16 21:55 Temperature Pulse Rate Respiratory Rate Blood Pressure 116/76 O2 Sat by Pulse Oximetry Laboratory Results - last 24 hr 12/06/16 12/06/16 12/06/16 20:13 20:13 20:13 WBC RBC Hgb Hct MCV MCH MCHC RDW Std Deviation Plt Count MPV Immature Gran % (Auto) Neut % (Auto) Lymph % (Auto) [place] % (Auto) Eos % (Auto) Baso % (Auto) Immature Gran # (Auto) Neut # (Auto) Lymph # (Auto) [place] # (Auto) Eos # (Auto) Baso # (Auto) Segmented Neutrophils Band Neutrophils Lymphocytes Monocytes Eosinophils Large Platelets Sodium 128 L Potassium 4.6 Chloride 88 L Carbon Dioxide 15 L Anion Gap 25 BUN 37 H Creatinine 1.5 H Estimated GFR/1.73 m2 46 BUN/Creatinine Ratio 25 Glucose 480 H* Estimat Average Glucose 180 Hemoglobin A1c 7.9 H Calculated Osmolality 287 Calcium 9.4 Total Bilirubin 0.80 AST 120 H ALT 56 H Alkaline Phosphatase 410 H Troponin T [id number]-Cnmuobvgjti Pept 1776 H Total Protein 6.9 Albumin 2.9 L Globulin 4.0 Albumin/Globulin Ratio 1.0 12/06/16 12/06/16 20:13 20:13 WBC 14.94 H RBC 3.81 L Hgb 12.1 L Hct 35.5 L MCV 93.2 MCH 31.8 H MCHC 34.1 RDW Std Deviation 14.7 H Plt Count 334 MPV 11.0 H Immature Gran % (Auto) 4.8 H Neut % (Auto) 74.1 Lymph % (Auto) 10.8 L [place] % (Auto) 8.2 Eos % (Auto) 0.4 Baso % (Auto) 1.7 H Immature Gran # (Auto) 0.72 H Neut # (Auto) 11.06 H Lymph # (Auto) 1.62 [place] # (Auto) 1.22 H Eos # (Auto) 0.06 Baso # (Auto) 0.26 H Segmented Neutrophils 81 H Band Neutrophils 4 H Lymphocytes 8 L Monocytes 6 Eosinophils 1 Large Platelets OCCASIONAL Sodium Potassium Chloride Carbon Dioxide Anion Gap BUN Creatinine Estimated GFR/1.73 m2 BUN/Creatinine Ratio Glucose Estimat Average Glucose Hemoglobin A1c Calculated Osmolality Calcium Total Bilirubin AST ALT Alkaline Phosphatase Troponin T 0.017 Vwp-[id number]-Ieyxkarrmdg Pept Total Protein Albumin Globulin Albumin/Globulin Ratio Orders Category Date Time Status CHEST-2 VIEWS [RAD] Stat Exams 12/06/16 20:22 Taken A1C HGB W EST AVG GLUCOSE [CHEM] Stat Lab 12/06/16 20:13 Completed BLOOD CULTURE [BLDCUL] Stat Lab 12/06/16 20:35 Results CBC WITH DIFF [HEME] Stat Lab 12/06/16 20:13 Completed COMPREHENSIVE METABOLIC PANEL [CHEM] Stat Lab 12/06/16 20:13 Completed LACTATE, PLASMA [CHEM] Stat Lab 12/06/16 22:03 Ordered PRO B-NATRIURETIC PEPTIDE Stat Lab 12/06/16 20:13 Completed TROPONIN T Stat Lab 12/06/16 20:13 Completed 0.9% Sodium Chloride Inj [Ns] 1,000 ml Med 12/06/16 20:24 Active IV 150 mls/hr 0.9% Sodium Chloride Inj [Ns] 250 ml Med 12/06/16 22:04 Active IV 999 mls/hr CefTRIAXONE 1 GM/NS [Rocephin 1 gm/Ns] Med 12/06/16 20:49 Discontinued 1 gm in 50 ml IV NOW Insulin Human Regular (Roff [Humulin R (Roff)] Med 12/06/16 20:23 Discontinued 8 units SUBQ NOW ONE Levofloxacin [Levaquin] 750 mg Med 12/06/16 20:40 Discontinued 0.9% Sodium Chloride Inj [Ns] 150 ml IV NOW Oxygen Device Stat Oth 12/06/16 20:21 Active EKG [EKG] Stat Ther 12/06/16 20:21 Draft Result Diagrams: 12/12/16 05:14 12/12/16 05:14 Departure - Departure Time of Disposition Decision: 21:00 DIAGNOSIS: Pneumonia Qualifiers: Pneumonia type: due to unspecified organism Laterality: unspecified laterality Lung location: unspecified part of lung Qualified Code(s): J18.9 - Pneumonia, unspecified organism Disposition: ADMITTED INPATIENT 09 Certified Medical Emergency: Emergent Condition: Stable - Critical Care Note This patient required my direct & personal management of CC.: No This chart was documented by the indicated scribe, (Georgia Lua Scribe) and accurately reflects the services I performed and decisions made by me, Casey Nguyễn MD, as attested by the provider's signature.
== END 2016-12-12 18:42 | disposition home or self-care (01) ==
LOC: P.ED 20:06 → SUATTDRO 22:38 → P.ICU 22:38 → P.MEDSURG 12-10 21:53
PROVIDERS: ATTEND Family Medicine

== ENCOUNTER 2018-08-17 13:17 | Inpatient (IN) ==
--- NOTE | 2018-08-17 13:59 | EKG Report ---
Test Performed on : 08/17/2018 1:28:13 PM Test Reason : a fib RVR Blood Pressure : / mmHG Vent. Rate : 137 BPM Atrial Rate : 138 BPM P-R Int : 000 ms QRS Dur : 090 ms QT Int : 360 ms P-R-T Axes : 000 -54 158 degrees QTc Int : 543 ms Atrial fibrillation. with rapid ventricular response. Left axis deviation Inferior infarct , age undetermined ST & T wave abnormality, consider anterolateral ischemia Abnormal ECG When compared with ECG of 28-JUN-2018 13:33, Significant changes have occurred Unconfirmed Result
[2018-08-17] MEDS ORDERED: NS 1,000 ML IV ONE (14:25)
--- NOTE | 2018-08-17 14:30 | Diag Imaging Result Doc PS360 ---
EXAM: CHEST-PORTABLE INDICATION: SOB TECHNIQUE: One view COMPARISON: 06/27/2018 FINDINGS: There has been interval placement of right chest port. The tip projects over the lower SVC near the atriocaval junction in the expected position. The nodular density seen in the right upper lung zone on the previous study is again identified. It may be slightly less prominent. There is mild interstitial thickening at the right mid and lower lung zone. This is similar to the previous study. There is no discrete pleural fluid collection or pneumothorax. Cardiac silhouette is borderline prominent. IMPRESSION: Decrease in conspicuity of the right upper lobe lung nodule with very vague interstitial thickening in the right mid and lower lung zone that is approximately stable. Electronically signed by Nicolás Mullen 08/17/2018 2:28 PM
[2018-08-17 14:43] LABS: INR 1.16; PROTIME 15.8 Seconds (11.0-16.0); PTT 26.6 Seconds (22.3-41.8)
[2018-08-17 14:46] LABS: BASO# 0.01 X1000 (0.0-0.2); BASO% 0.2 % (0.0-0.8); HEMOGLOBIN 10.4 g/dL (14.0-18.0); LYMPH# 0.42 X1000 (1.2-3.4); LYMPH% 8.3 % (20.5-51.1); MCH 33.2 PG (27-31); MCHC 33.5 g/dL (33-37); MONO# 0.34 X1000 (0.11-0.59); MONO% 6.8 % (1.7-9.3); MPV 11.8 FL (7.4-10.4); NEUT# 4.26 X1000 (1.4-6.5); NEUT% 84.7 % (42.2-75.2); PLT 125 X1000 (130-400); RBC 3.13 XMIL (4.7-6.1); RDW 15.4 % (11.5-14.5); WBC 5.03 X1000 (4.8-10.8)
[2018-08-17 14:54] LABS: URINE SOURCE CLEAN CATCH
[2018-08-17 15:02] LABS: BILIRUBIN URINE NEGATIVE (NEGATIVE); BLOOD URINE SMALL (NEGATIVE); COLOR YELLOW; GLUCOSE URINE >1000 mg/dL (NEGATIVE); KETONE URINE TRACE mg/dL (NEGATIVE); LEUKOCYTES URINE LARGE (NEGATIVE); NITRITE URINE NEGATIVE (NEGATIVE); PROTEIN URINE 50 mg/dL (NEGATIVE); SP GRAVITY URINE 1.022; TURBIDITY URINE HAZY (CLEAR); UROBILINOGEN URINE NORMAL (NORMAL)
[2018-08-17 15:03] LABS: ALB/GLOB RATIO 1.5; ALBUMIN 4.1 g/dL (3.5-5.0); CALCIUM 9.2 mg/dL (8.8-10.2); CREATININE 1.4 mg/dL (0.7-1.2); POTASSIUM 4.8 mmol/L (3.5-5.1); TOTAL BILIRUBIN 1.19 mg/dL (0.20-1.00); TOTAL PROTEIN 6.8 g/dL (6.3-8.3)
[2018-08-17 15:04] LABS: UR EPITHELIAL CELLS <10 /HPF (<10); URINE BACTERIA 4+ /HPF; URINE RBC <10 /HPF (<10); URINE WBC TNTC /HPF (<10)
[2018-08-17] MEDS ORDERED: HUMULIN R IV ONE ×2 (15:23→17:04)
[2018-08-17] MEDS ORDERED: ASPIRIN PO ONE (15:24)
[2018-08-17 16:07] LABS: ALLEN TEST NO; BE -6.5 mmoll (-3.0-3.0); BLOOD TYPE ARTERIAL; HCO3-(ACT) 19.7 mmoll (20.0-26.0); METHB 1.3 % (0.0-1.5); O2(CT) 13.4 mL/dL (15.0-23.0); PCO2(98.6) 31 mmHg (35-45); PO2(98.6) 68 mmHg (60-100); SAMPLE BLOOD; THB 10.7 g/dL (11.5-17.4); pH(98.6) 7.37 (7.35-7.45)
[2018-08-17 16:15] LABS: MODALITY ROOM AIR; O2HB 88.7 % (95.0-99.0)
[2018-08-17] MEDS ORDERED: LANOXIN IV ONE ×2 (16:52→22:21)
[2018-08-17] MEDS ORDERED: CARDIZEM 125 MG in NS 100 ML IV SCH (17:00)
[2018-08-17] MEDS ORDERED: ROCEPHIN 1 GM in NS 50 ML IV ONE (17:16)
--- NOTE | 2018-08-17 17:18 | PROVIDER DOCUMENTATION ---
This chart was entered by Ana Mari Scribe, acting as scribe for Adin Barron MD. HPI-Cardiac General - General Chief Complaint: Chest Pain Stated Complaint: CHEST PAIN Time Seen by Provider: 08/17/18 13:36 Source: patient Allergies/Adverse Reactions: Patient Allergies Allergy/AdvReac Type Severity Reaction Status Date / Time No Known Allergies Allergy Verified 08/17/18 13:55 Home Medications: Home Medication List Medication Instructions Recorded Confirmed Last Taken Type ATORVAstatin [Lipitor] 40 mg PO DAILY 12/06/16 06/30/18 06/29/18 05:00 History Carbidopa/Levodopa 1 dose PO DAILY 12/06/16 06/30/18 06/29/18 08:00 History [Carbidopa-Levodopa 25-100 Tab] Hydrochlorothiazide 25 mg PO DAILY 12/06/16 06/30/18 06/29/18 08:00 History Acetaminophen with Codeine 1 each PO Q4H PRN PRN 06/28/18 06/30/18 06/29/18 05: 00 History [Tylenol with Codeine #3] Insulin Aspart [Novolog] 4 unit SQ TID 06/28/18 06/30/18 06/29/18 18:00 History Insulin Glargine [Lantus] 20 unit SUBQ QHS 06/28/18 06/30/18 06/29/18 18:00 History Metoprolol [Lopressor] 0.5 tab PO BID 06/28/18 06/30/18 06/30/18 07:00 History Omeprazole 40 mg PO DAILY 06/28/18 06/30/18 06/29/18 08:00 History Polyethylene Glycol 3350 1 gm MC DAILY 06/28/18 06/30/18 06/28/18 08:00 History Hydrocodone/APAP 7.5 mg/325 mg 1 ea PO Q6H PRN PRN #15 tab 06/30/18 Unknown Rx [[place]-7.5] - History of Present Illness-Cardiac Nature of Presenting Problem: Patient is a 77 year old male who presents to the ED with palpitations. [facility] and was informed to go to the ED. Patient states history of lung cancer. Patient denies chest pain and fever. Patient also states shortness of breath. Location: reports: central Quality of Pain: reports: none Severity in ED: mild Onset/Duration: this morning Timing: still present Context/Activities at Onset: reports: light activity Modifying Factors: improves with: nothing Palpitation Quality: fast/pounding heart beat History of arrythmia: reports: A-Fib Associated Symptoms: reports: shortness of breath Similar Symptoms Previously?: No Recently Seen Here or By Another Healthcare Provider: Yes Review of Systems - Adult - REVIEW OF SYSTEMS - ADULT Constitutional: reports: no symptoms reported Eyes: reports: no symptoms reported Ears, Nose, Mouth & Throat: reports: no symptoms reported Cardiovascular: reports: palpitations. denies: chest pain, syncope Respiratory: reports: shortness of breath. denies: cough, wheezing Gastrointestinal: reports: no symptoms reported Genitourinary: reports: no symptoms reported Musculoskeletal: reports: no symptoms reported Integumentary: reports: no symptoms reported Neurological: reports: no symptoms reported Psychiatric: reports: no symptoms reported Endocrine: reports: no symptoms reported Hematologic/Lymphatic: reports: no symptoms reported Allergic/Immunologic: reports: no symptoms reported All Other Systems: Reviewed and Negative Past History - Adult - PAST MEDICAL HISTORY-ADULT Review of Records: reports: Nursing Assessment Review, Medications Reviewed, Social history reviewed & non-contributory. Major Childhood Illnesses: reports: denies history Cardiovascular: reports: A-Fib, HTN, hyperlipidemia Respiratory: reports: COPD, cancer Gastrointestinal: reports: denies history Obstetrical/Gynecological: reports: denies history Genitourinary: reports: denies history Musculoskeletal: reports: denies history Neurological: reports: denies history Endocrine/Immune: reports: Diabetes Other Conditions: reports: denies history - PRIOR SURGERIES/PROCEDURES Surgical/Procedure History: reports: appendectomy - IMMUNIZATION STATUS Childhood Immunizations: See Nurse Assessment Flu Vaccine: See Nurse Assessment - FAMILY HISTORY Family History: reviewed, not pertinent - SOCIAL HISTORY Smoking: cigarettes (former) Substance Use: alcohol Alcohol Use Frequency: occasionally Physical Exam-General - PHYSICAL EXAM-ADULT Initial Vital Signs Reviewed: Yes - CONSTITUTIONAL General Appearance: alert, no apparent distress - RESPIRATORY Respiratory: lungs clear, normal breath sounds, other (port to right side chest) - CARDIOVASCULAR Cardiovascular: tachycardia - MUSCULOSKELETAL Extremity: non-tender, other (stasis dermatitis to bilateral lower extremities) - SKIN Integumentary: normal turgor, warm/dry, pallor - NEUROLOGIC Neurologic: grossly normal - PSYCHIATRIC Psych/Mental Status: normal mood/affect, oriented x 3 Progress - PLAN OF CARE/RESULTS Progress/Plan/Lab Results: Vital Signs - 8 hr 08/17/18 13:21 08/17/18 14:16 08/17/18 14:19 Temperature 97.0 F L Pulse Rate 130 H 126 H 134 H Respiratory Rate 30 H 29 H 19 Blood Pressure 87/56 106/78 O2 Sat by Pulse Oximetry 77 L 97 96 08/17/18 14:21 08/17/18 14:30 08/17/18 14:31 Temperature Pulse Rate 138 H 135 H 139 H Respiratory Rate 27 H 20 16 Blood Pressure 103/82 O2 Sat by Pulse Oximetry 94 L 95 92 L 08/17/18 16:52 08/17/18 17:10 Temperature Pulse Rate 129 H 125 H Respiratory Rate 21 Blood Pressure 104/72 O2 Sat by Pulse Oximetry 94 L 08/17/18 14:18 Influenza Screen - Final Nasopharyngeal Laboratory Results - last 24 hr 08/17/18 08/17/18 08/17/18 14:20 14:20 14:20 WBC 5.03 RBC 3.13 L Hgb 10.4 L Hct 31.0 L MCV 99.0 MCH 33.2 H MCHC 33.5 RDW Std Deviation 15.4 H Plt Count 125 L MPV 11.8 H Immature Gran % (Auto) 0.0 Neut % (Auto) 84.7 H Lymph % (Auto) 8.3 L [place] % (Auto) 6.8 Eos % (Auto) 0.0 Baso % (Auto) 0.2 Immature Gran # (Auto) 0.00 Neut # (Auto) 4.26 Lymph # (Auto) 0.42 L [place] # (Auto) 0.34 Eos # (Auto) 0.00 Baso # (Auto) 0.01 PT INR PTT (Actin FS) Specimen Type Sample Site pH pCO2 pO2 HCO3 Base Excess Oxyhemoglobin ABG O2 Sat (Calculated) ABG O2 Saturation ABG Carboxyhemoglobin ABG Methemoglobin Elia Test A-a O2 Difference Total Hemoglobin Lactate Blood Gas Modality FiO2 % Sodium 136 Potassium 4.8 Chloride 97 L Carbon Dioxide 21 L Anion Gap 18 BUN 45 H Creatinine 1.4 H Estimated GFR/1.73 m2 49 BUN/Creatinine Ratio 32 Glucose 452 H* POC Glucose Calculated Osmolality 303 Calcium 9.2 Magnesium 1.7 Total Bilirubin 1.19 H AST 91 H ALT 32 Alkaline Phosphatase 117 Troponin T Total Protein 6.8 Albumin 4.1 Globulin 2.7 Albumin/Globulin Ratio 1.5 Plasma Lactate Urine Source Urine Color Urine Turbidity Urine pH Ur Specific [place] Urine Protein Ur Glucose (Stick) Ur Ketones (Stick) Urine Blood Urine Nitrite Urine Bilirubin Urobilinogen Dipstick Urine Leukocytes Urine WBC (Auto) Urine RBC (Auto) U Epithel Cells (Auto) Urine Bacteria (Auto) Acetone Level 08/17/18 08/17/18 08/17/18 14:20 14:20 14:20 WBC RBC Hgb Hct MCV MCH MCHC RDW Std Deviation Plt Count MPV Immature Gran % (Auto) Neut % (Auto) Lymph % (Auto) [place] % (Auto) Eos % (Auto) Baso % (Auto) Immature Gran # (Auto) Neut # (Auto) Lymph # (Auto) [place] # (Auto) Eos # (Auto) Baso # (Auto) PT 15.8 INR 1.16 PTT (Actin FS) 26.6 Specimen Type Sample Site pH pCO2 pO2 HCO3 Base Excess Oxyhemoglobin ABG O2 Sat (Calculated) ABG O2 Saturation ABG Carboxyhemoglobin ABG Methemoglobin Elia Test A-a O2 Difference Total Hemoglobin Lactate Blood Gas Modality FiO2 % Sodium Potassium Chloride Carbon Dioxide Anion Gap BUN Creatinine Estimated GFR/1.73 m2 BUN/Creatinine Ratio Glucose POC Glucose Calculated Osmolality Calcium Magnesium Total Bilirubin AST ALT Alkaline Phosphatase Troponin T 2.900 H* Total Protein Albumin Globulin Albumin/Globulin Ratio Plasma Lactate 4.3 H Urine Source Urine Color Urine Turbidity Urine pH Ur Specific [place] Urine Protein Ur Glucose (Stick) Ur Ketones (Stick) Urine Blood Urine Nitrite Urine Bilirubin Urobilinogen Dipstick Urine Leukocytes Urine WBC (Auto) Urine RBC (Auto) U Epithel Cells (Auto) Urine Bacteria (Auto) Acetone Level 08/17/18 08/17/18 08/17/18 14:20 14:48 15:48 WBC RBC Hgb Hct MCV MCH MCHC RDW Std Deviation Plt Count MPV Immature Gran % (Auto) Neut % (Auto) Lymph % (Auto) [place] % (Auto) Eos % (Auto) Baso % (Auto) Immature Gran # (Auto) Neut # (Auto) Lymph # (Auto) [place] # (Auto) Eos # (Auto) Baso # (Auto) PT INR PTT (Actin FS) Specimen Type Sample Site pH pCO2 pO2 HCO3 Base Excess Oxyhemoglobin ABG O2 Sat (Calculated) ABG O2 Saturation ABG Carboxyhemoglobin ABG Methemoglobin Elia Test A-a O2 Difference Total Hemoglobin Lactate Blood Gas Modality FiO2 % Sodium Potassium Chloride Carbon Dioxide Anion Gap BUN Creatinine Estimated GFR/1.73 m2 BUN/Creatinine Ratio Glucose POC Glucose Calculated Osmolality Calcium Magnesium Total Bilirubin AST ALT Alkaline Phosphatase Troponin T 2.300 H* Total Protein Albumin Globulin Albumin/Globulin Ratio Plasma Lactate Urine Source CLEAN CATCH Urine Color YELLOW Urine Turbidity HAZY Urine pH 5.0 Ur Specific [place] 1.022 Urine Protein 50 A Ur Glucose (Stick) >1000 A Ur Ketones (Stick) TRACE A Urine Blood SMALL A Urine Nitrite NEGATIVE Urine Bilirubin NEGATIVE Urobilinogen Dipstick NORMAL Urine Leukocytes LARGE A Urine WBC (Auto) TNTC A Urine RBC (Auto) <10 U Epithel Cells (Auto) <10 Urine Bacteria (Auto) 4+ Acetone Level NEGATIVE 08/17/18 08/17/18 16:00 16:22 WBC RBC Hgb Hct MCV MCH MCHC RDW Std Deviation Plt Count MPV Immature Gran % (Auto) Neut % (Auto) Lymph % (Auto) [place] % (Auto) Eos % (Auto) Baso % (Auto) Immature Gran # (Auto) Neut # (Auto) Lymph # (Auto) [place] # (Auto) Eos # (Auto) Baso # (Auto) PT INR PTT (Actin FS) Specimen Type ARTERIAL Sample Site R BRACHIAL pH 7.37 pCO2 31 L pO2 68 HCO3 19.7 L Base Excess -6.5 L Oxyhemoglobin 88.7 L* ABG O2 Sat (Calculated) 13.4 L ABG O2 Saturation 93.0 L ABG Carboxyhemoglobin 3.20 H ABG Methemoglobin 1.3 Elia Test NO A-a O2 Difference 43.0 Total Hemoglobin 10.7 L Lactate 3.40 H Blood Gas Modality ROOM AIR FiO2 % 21.0 Sodium Potassium Chloride Carbon Dioxide Anion Gap BUN Creatinine Estimated GFR/1.73 m2 BUN/Creatinine Ratio Glucose POC Glucose 359 H D Calculated Osmolality Calcium Magnesium Total Bilirubin AST ALT Alkaline Phosphatase Troponin T Total Protein Albumin Globulin Albumin/Globulin Ratio Plasma Lactate Urine Source Urine Color Urine Turbidity Urine pH Ur Specific [place] Urine Protein Ur Glucose (Stick) Ur Ketones (Stick) Urine Blood Urine Nitrite Urine Bilirubin Urobilinogen Dipstick Urine Leukocytes Urine WBC (Auto) Urine RBC (Auto) U Epithel Cells (Auto) Urine Bacteria (Auto) Acetone Level Orders Category Date Time Status Cardiac Monitoring DIRECTED Care 08/17/18 13:51 Active Saline Loc NOW Care 08/17/18 13:50 Active CHEST-PORTABLE [RAD] Stat Exams 08/17/18 13:54 Completed ABG [RESP] Routine Lab 08/17/18 16:00 Completed ACETONE SERUM [CHEM] Stat Lab 08/17/18 14:20 Completed BLOOD CULTURE [BLDCUL] Stat Lab 08/17/18 14:50 Results CBC WITH ELECTRONIC DIFF [HEME] Stat Lab 08/17/18 14:20 Completed COMPREHENSIVE METABOLIC PANEL [CHEM] Stat Lab 08/17/18 14:20 Completed INFLUENZA SCREEN A/B Stat Lab 08/17/18 14:18 Completed LACTATE, PLASMA [CHEM] Stat Lab 08/17/18 14:20 Completed MAGNESIUM [CHEM] Stat Lab 08/17/18 14:20 Completed PROTIME WITH INR [COAG] Stat Lab 08/17/18 14:20 Completed PTT [COAG] Stat Lab 08/17/18 14:20 Completed TROPONIN T Stat Lab 08/17/18 14:20 Completed TROPONIN T Stat Lab 08/17/18 15:48 Completed URINALYSIS W/POSS RFLX CULT [URINALYSIS] Stat Lab 08/17/18 14:48 Completed URINE CULTURE [RM] Routine Lab 08/17/18 16:00 Received 0.9% Sodium Chloride Inj [Ns] 1,000 ml Med 08/17/18 14:25 Discontinued IV 999 mls/hr 0.9% Sodium Chloride Inj [Ns] 100 ml Med 08/17/18 17:00 Active Diltiazem [Cardizem] 125 mg IV As Directed Aspirin Med 08/17/18 15:24 Discontinued 325 mg PO NOW ONE Digoxin [Lanoxin] Med 08/17/18 16:52 Discontinued 250 microgm IV NOW ONE Insulin Human Regular [Humulin R] Med 08/17/18 15:23 Discontinued 10 unit IV NOW ONE Insulin Human Regular [Humulin R] Med 08/17/18 17:04 Discontinued 10 unit IV NOW ONE EKG [EKG] Stat Ther 08/17/18 13:51 Draft EKG [EKG] Stat Ther 08/17/18 15:21 Ordered Transfer/Admit Order [TRANSFER] Routine Transfer 08/17/18 16:57 Ordered Laboratory Tests 08/17/18 08/17/18 08/17/18 14:20 14:20 14:20 WBC 5.03 RBC 3.13 L Hgb 10.4 L Hct 31.0 L MCV 99.0 MCH 33.2 H MCHC 33.5 RDW Std Deviation 15.4 H Plt Count 125 L MPV 11.8 H Immature Gran % (Auto) 0.0 Neut % (Auto) 84.7 H Lymph % (Auto) 8.3 L [place] % (Auto) 6.8 Eos % (Auto) 0.0 Baso % (Auto) 0.2 Immature Gran # (Auto) 0.00 Neut # (Auto) 4.26 Lymph # (Auto) 0.42 L [place] # (Auto) 0.34 Eos # (Auto) 0.00 Baso # (Auto) 0.01 PT INR PTT (Actin FS) Sodium 136 Potassium 4.8 Chloride 97 L Carbon Dioxide 21 L Anion Gap 18 BUN 45 H Creatinine 1.4 H Estimated GFR/1.73 m2 49 BUN/Creatinine Ratio 32 Glucose 452 H* Calculated Osmolality 303 Calcium 9.2 Magnesium 1.7 Total Bilirubin 1.19 H AST 91 H ALT 32 Alkaline Phosphatase 117 Troponin T Total Protein 6.8 Albumin 4.1 Globulin 2.7 Albumin/Globulin Ratio 1.5 Plasma Lactate Urine Source Urine Color Urine Turbidity Urine pH Ur Specific [place] Urine Protein Ur Glucose (Stick) Ur Ketones (Stick) Urine Blood Urine Nitrite Urine Bilirubin Urobilinogen Dipstick Urine Leukocytes Urine WBC (Auto) Urine RBC (Auto) U Epithel Cells (Auto) Urine Bacteria (Auto) 08/17/18 08/17/18 08/17/18 14:20 14:20 14:20 WBC RBC Hgb Hct MCV MCH MCHC RDW Std Deviation Plt Count MPV Immature Gran % (Auto) Neut % (Auto) Lymph % (Auto) [place] % (Auto) Eos % (Auto) Baso % (Auto) Immature Gran # (Auto) Neut # (Auto) Lymph # (Auto) [place] # (Auto) Eos # (Auto) Baso # (Auto) PT 15.8 INR 1.16 PTT (Actin FS) 26.6 Sodium Potassium Chloride Carbon Dioxide Anion Gap BUN Creatinine Estimated GFR/1.73 m2 BUN/Creatinine Ratio Glucose Calculated Osmolality Calcium Magnesium Total Bilirubin AST ALT Alkaline Phosphatase Troponin T 2.900 H* Total Protein Albumin Globulin Albumin/Globulin Ratio Plasma Lactate 4.3 H Urine Source Urine Color Urine Turbidity Urine pH Ur Specific [place] Urine Protein Ur Glucose (Stick) Ur Ketones (Stick) Urine Blood Urine Nitrite Urine Bilirubin Urobilinogen Dipstick Urine Leukocytes Urine WBC (Auto) Urine RBC (Auto) U Epithel Cells (Auto) Urine Bacteria (Auto) 08/17/18 14:48 WBC RBC Hgb Hct MCV MCH MCHC RDW Std Deviation Plt Count MPV Immature Gran % (Auto) Neut % (Auto) Lymph % (Auto) [place] % (Auto) Eos % (Auto) Baso % (Auto) Immature Gran # (Auto) Neut # (Auto) Lymph # (Auto) [place] # (Auto) Eos # (Auto) Baso # (Auto) PT INR PTT (Actin FS) Sodium Potassium Chloride Carbon Dioxide Anion Gap BUN Creatinine Estimated GFR/1.73 m2 BUN/Creatinine Ratio Glucose Calculated Osmolality Calcium Magnesium Total Bilirubin AST ALT Alkaline Phosphatase Troponin T Total Protein Albumin Globulin Albumin/Globulin Ratio Plasma Lactate Urine Source CLEAN CATCH Urine Color YELLOW Urine Turbidity HAZY Urine pH 5.0 Ur Specific [place] 1.022 Urine Protein 50 A Ur Glucose (Stick) >1000 A Ur Ketones (Stick) TRACE A Urine Blood SMALL A Urine Nitrite NEGATIVE Urine Bilirubin NEGATIVE Urobilinogen Dipstick NORMAL Urine Leukocytes LARGE A Urine WBC (Auto) TNTC A Urine RBC (Auto) <10 U Epithel Cells (Auto) <10 Urine Bacteria (Auto) 4+ Result Diagrams: 08/17/18 14:20 08/17/18 14:20 - REASSESSMENT Reassessment #1 Time Reassessed: 15:22 Status: other (Dr. Barron at patient's bedside. Patient denies chest pain currently. Patient states chest pain last night and mild pain this morning. Patient's systolic pressure is 108. Patient states he took 16 units of insulin this morning.) Reassessment #2 Time Reassessed: 16:44 Status: unchanged (not in DKA, pH 7.37, ACETONE NEG, JUST TALKED WITH DR RAMOS WHO INSTRUCTS DIGOXIN 0.25 NOW AND 0.123MG IN 2 HR. BEGIN CARDIZEM GTT.) - EKG 1 Time of EKG reading by physician:: 13:28 EKG Read and Signed by:: Adin Barron EKG Interpretation (*Must complete 3 of following elements*): Abnormal (ST & T wave abnormality, consider anterolateral ischemia) Rate: 137 Rhythm: atrial fibrillation with rapid ventricular response Comments: left axis deviation; inferior infarct, age undetermined 2 Time of EKG reading by physician:: 15:25 EKG Read and Signed by:: Adin Barron EKG Interpretation (*Must complete 3 of following elements*): Abnormal (ST & T wave abnormality, consider anterolateral ischemia) Rate: 127 Rhythm: atrial fibrillation with rapid ventricular response Comments: left axis deviation; inferior infarct, age undetermined - XRAY 1 XRAY Study: Chest Impression: See EMR Report ( EXAM: CHEST-PORTABLE INDICATION: SOB TECHNIQUE : One view COMPARISON: 06/27/2018 FINDINGS: There has been interval placement of right chest port. The tip projects over the lower SVC near the atriocaval junction in the expected position. The nodular density seen in the right upper lung zone on the previous study is again identified. It may be slightly less prominent. There is mild interstitial thickening at the right mid and lower lung zone. This is similar to the previous study. There is no discrete pleural fluid collection or pneumothorax. Cardiac silhouette is borderline prominent. IMPRESSION: Decrease in conspicuity of the right upper lobe lung nodule with very vague interstitial thickening in the right mid and lower lung zone that is approximately stable. Electronically signed by Nicolás Mullen 08/17/2018 2:28 PM 08/17/18 1428 Interpreting Physician: Nicolás uMllen MD Dictated Date/Time: 08/17/18 1424 cc: Adin Barron MD; Rod Holloway MD) - CONSULTS/PCP/HOSPITALIST Notification #1 *Consult/PCP/Hospitalist*: JEET Mane for Hospitalist Time Discussed: 16:38 (Dr. James accepted admit) Reason/Comments: Dr. Barron consulted with Consult Disposition: Will see in ED, Admit #2 Consult: DR RAMOS Time Discussed: 16:51 (will see, instructs for digoxin and iv cardizem gtt) Departure - Departure Date of Disposition Decision: 08/17/18 Time of Disposition Decision: 16:57 DIAGNOSIS: Atrial fibrillation with RVR, Non-ST elevated myocardial infarction, Diabetes mellitus with hyperglycemia, UTI (urinary tract infection), Dehydration, Hypotension Disposition: ADMITTED INPATIENT 09 Certified Medical Emergency: Emergent Condition: Stable Referrals and Follow-Ups: Rod Holloway MD [Primary Care Provider] - - Critical Care Note This patient required my direct & personal management of CC.: Yes Total Time (mins): 45 Critical Care Statement: This patient required my direct personal management to treat or rule out processes, the absence of which, could potentiallly result in sudden, clinically significant life or limb threatening deterioration. Attestation - Physician/ CA Attestation The physician spent face to face time with patient:: Yes Advanced Practice Provider documentation review:: Supervising physician onsite and consulted in the evaluation and care of this patient. The physician did have a face to face encounter with the patient. This chart was documented by the indicated scribe, (Ana Mari Scribe) and accurately reflects the services I performed and decisions made by me, Adin Barron MD, as attested by the provider's signature.
[2018-08-17] MEDS ORDERED: LOVENOX SUBQ ONE (17:33)
[2018-08-17] MEDS ORDERED: NS 1,000 ML ONE (18:19)
[2018-08-17] MEDS ORDERED: NEO-SYNEPHRINE 50 MG in NS 250 ML IV SCH (18:45)
[2018-08-17] MEDS ORDERED: NITROGLYCERIN SL PRN (18:47)
[2018-08-17] MEDS ORDERED: ZOFRAN IV PRN ×2 (18:47)
[2018-08-17] MEDS ORDERED: TYLENOL PO PRN ×2 (18:47)
[2018-08-17] MEDS ORDERED: SODIUM CHLORIDE 0.9% INJ SCH (18:47)
[2018-08-17] MEDS: PROTONIX IV SCH (20:39)
[2018-08-17] MEDS ORDERED: HUMALOG SUBQ SCH (21:00)
[2018-08-17 21:12] LABS: CK INDEX 8.5 (0.0-2.5); CK-MB 28.52 ng/mL (0.0-5.0)
[2018-08-17] MEDS: HUMULIN R SUBQ SCH (21:33)
[2018-08-17] MEDS ORDERED: CORDARONE IV ONE (22:38)
[2018-08-18] MEDS ORDERED: CORDARONE 360 MG/D5W 360 MG/200 ML IV.SOLN IV ONE (01:14)
--- NOTE | 2018-08-18 02:44 | HISTORY AND PHYSICAL ---
PRIMARY CARE PROVIDER: Dr. Rod Holloway. CHIEF COMPLAINT: Chest pain. HISTORY OF PRESENT ILLNESS: Mr. Schulz is a 77-year-old, male who was diagnosed with lung cancer 3 months ago. He is followed by Dr. Calvo. He states he received his last chemotherapy on Wednesday of this week and he has radiation 5 days a week. He reported yesterday, he started having chest pain that "felt like gas". He reported shortness of breath , dizziness, nausea, diaphoresis. He stated that he went to his appointment at Dr. Calvo's office, still was not feeling really well, went home, felt his heart racing, went back to Dr. Calvo who referred him to the ED. In the ER, he was found to have atrial fibrillation with RVR. He was given a bolus of fluid without any resolution. He was hyperglycemic. He was given 2 doses of regular insulin with 10 units. He was also found to have an acute kidney injury, possible chronic kidney disease, marginal blood pressures, and a positive troponin at 2.300, and urinalysis with 4+ bacteria, too numerous to count WBCs, and large leukocytes. He was started on IV Rocephin, which we will continue and await urine culture. He has had no fever, no white count. The ED physician consulted with Dr. Tinsley. He was given a dose of digoxin and started on IV Cardizem. We will go ahead and give one dose of full dose Lovenox given his positive troponins and admit him to the ICU for close observation. Continue to trend his cardiac enzymes. PAST MEDICAL HISTORY: 1. Type 2 diabetes. 2. Hypertension. 3. History of recurrent pneumonia, last admitted for this was in November of 2016. 4. Parkinsonism. 5. BPH. 6. New diagnosis of lung cancer 3 months ago, on chemotherapy and radiation with Dr. Calvo. PAST SURGICAL HISTORY: 1. Port-A-Cath in June of 2018. 2. Appendectomy at the age of 21. 3. Left hip repair. ALLERGIES: No known drug allergies. MEDICATIONS: Home medications have not been reconciled. SOCIAL HISTORY: Patient was a half pack a day smoker for over 50 years. He quit 5 weeks ago, although he occasionally bums a cigarette. He reports to rarely drinking 1 beer about every 3 months for kidney health. No illicit drugs. FAMILY HISTORY: Reviewed and noncontributory. REVIEW OF SYSTEMS: A 10 point review of systems was completed and negative except for those mentioned in the HPI. PHYSICAL EXAMINATION: VITAL SIGNS: Temperature is 97 degrees, heart rate 125, respirations 21, blood pressure 104/72, O2 is 94% on room air. GENERAL: Mr. Schulz is an ill-appearing, 77-year-old gentleman who is lying on the stretcher, in no acute distress. HEENT: Atraumatic, normocephalic. PERRL. Neck is supple. Trachea midline. He does have a hearing aid in his right ear. CV: Irregular rhythm. No murmurs, gallops, or rubs noted. PULMONARY: Bilateral breath sounds diminished throughout all lung ayala. I did not appreciate any wheezes, rales, or rhonchi. GI: Soft, nontender, nondistended. Positive bowel sounds in 4 quadrants. EXTREMITIES: No clubbing, no cyanosis. Bilateral pedal pulses are palpable. SKIN: He has chronic venous stasis to his bilateral lower extremities. NEUROLOGIC: No focal deficits noted. Cranial nerves 2-12 are grossly intact. DIAGNOSTIC DATA: First EKG, atrial fibrillation with RVR at a rate 137 beats per minute. Chest x- ray showed decrease in conspicuity of the right upper lobe lung nodule with very vague interstitial thickening in the right mid and lower lung zones is approximately stable. LABORATORY DATA: White count 5, hemoglobin and hematocrit 10 and 31, platelet count is 125,000. PT is 15, INR 1.16, PTT 26.6. Chemistry: Sodium 136, potassium 4.8, anion gap 18, BUN 45, creatinine 1.4, blood glucose was 452, magnesium was 1.7. Total bilirubin 1.19 , AST 91. Troponin 2.900, second troponin 2.300. Plasma lactate 4.3. Urinalysis, 4+ bacteria, too numerous to count WBCs, large leukocytes, negative nitrites. Toxicology screen was negative for acetone. ASSESSMENT AND PLAN: 1. Atrial fibrillation with rapid ventricular response. The patient was given a dose of digoxin and will be started on a Cardizem drip. Cardiology has been consulted. 2. Non-ST elevation myocardial infarction. We will continue to trend his cardiac enzymes. We will check an echocardiogram. Continue with cardiology recommendations. Continue with full- dose aspirin. We will give him a one time dose of full-dose Lovenox. Await cardiology's recommendation. Continue to trend his cardiac enzymes. Monitor him on telemetry in the intensive care unit. We will do morphine for chest pain as well as nitroglycerin. Repeat electrocardiogram in the morning. Start him on a statin. Check a lipid profile. 3. Hyperglycemia. Patient has been given two doses of regular intravenous insulin. We will place him on pattern of blood sugars with sliding scale. 4. Acute kidney injury on possible chronic kidney disease. We will continue with intravenous hydration and recheck his kidney function in the morning. 5. Probable urinary tract infection. Given the patient's lactate, we will go ahead and initiate intravenous Rocephin and await his urine culture. He did not have a white count. He did not have a fever. He was tachycardic secondary to atrial fibrillation with rapid ventricular response. He was given a bolus of fluid in the emergency department. He was not treated with the sepsis protocol. 6. Recent diagnosis of lung cancer. He is followed by Dr. Calvo. We will consult him. He is on chemotherapy and radiation. 7. Hypertension, borderline hypotensive. We will hold any blood pressure medications at this point. 8. Further recommendations to follow physician evaluation, laboratory, diagnostic, and consultation data. Dictated by JEET West for Fide James MD cc: MD Rod Rose MD I performed a face to face encounter on the patient. I reviewed all labs and imaging for the patient. I agree with the H&P as dictated. The patient presented to the ER with a chief complaint of chest pain. The initial troponin was noted to be elevated at 2.9. The EKG revealed Q waves in the inferior leads. The patient was also noted to be in atrial fibrillation. Cardiology was consulted an a cardizem drip was started. It was later switched to an amiodarone drip. Neosynephrine was added for blood pressure support. The patient was then started on full dose lovenox. The patient was also started on broad spectrum antibiotics due to sepsis secondary to a urinary tract infection. MTDD
[2018-08-18 04:16] LABS: BASO# 0.01 X1000 (0.0-0.2); BASO% 0.2 % (0.0-0.8); EOS# 0.01 X1000 (0.0-0.7); EOS% 0.2 % (0.0-10.0); HEMATOCRIT 29.4 % (42.0-52.0); HEMOGLOBIN 9.6 g/dL (14.0-18.0); LYMPH# 0.59 X1000 (1.2-3.4); LYMPH% 14.5 % (20.5-51.1); MCH 32.3 PG (27-31); MCHC 32.7 g/dL (33-37); MONO# 0.22 X1000 (0.11-0.59); MONO% 5.4 % (1.7-9.3); MPV 10.9 FL (7.4-10.4); NEUT# 3.25 X1000 (1.4-6.5); NEUT% 79.7 % (42.2-75.2); PLT 105 X1000 (130-400); RBC 2.97 XMIL (4.7-6.1); RDW 15.5 % (11.5-14.5); WBC 4.08 X1000 (4.8-10.8)
[2018-08-18 04:34] LABS: AGAP 13; ALB/GLOB RATIO 1.7; ALBUMIN 3.5 g/dL (3.5-5.0); ALKALINE PHOSPHATASE 94 U/L (32-122); BUN 46 mg/dL (8-22); CALCIUM 8.1 mg/dL (8.8-10.2); CHLORIDE 101 mmol/L (98-107); CHOLESTEROL 114 mg/dL (0-200); COSMO 294; CREATININE 1.3 mg/dL (0.7-1.2); ESTIMATED GFR 54; GLUCOSE 252 mg/dL (70-104); GOT 77 U/L (10-34); GPT 32 U/L (10-44); HDL 45 mg/dL (35-55); LDL 48 mg/dL; POTASSIUM 4.7 mmol/L (3.5-5.1); SODIUM 137 mmol/L (136-145); TCO2 23 mmol/L (25-35); TOTAL BILIRUBIN 0.91 mg/dL (0.20-1.00); TOTAL PROTEIN 5.6 g/dL (6.3-8.3); TRIGLYCERIDES 104 mg/dL (39-160); VLDL 21 mg/dL
[2018-08-18 05:07] LABS: CK INDEX 8.1 (0.0-2.5); CK-MB 24.27 ng/mL (0.0-5.0)
[2018-08-18] MEDS ORDERED: PRILOSEC PO SCH (07:00)
--- NOTE | 2018-08-18 07:02 | Diag Imaging Result Doc PS360 ---
EXAM: CHEST-PORTABLE 08/18/2018 HISTORY: Chest Pain TECHNIQUE: AP portable at 0340 COMMENT: The inspiration is less optimal than on 08/17/2018. There is cardiomegaly. Considering differences in inspiration there has been no significant change since 08/17/2018. IMPRESSION: Cardiomegaly. Electronically signed by Luis Etienne 08/18/2018 6:59 AM
[2018-08-18] MEDS ORDERED: CORDARONE 540 MG in D5W 289.2 ML IV ONE (07:15)
--- NOTE | 2018-08-18 07:39 | EKG Report ---
Test Performed on : 08/18/2018 06:51:04 AM Test Reason : afib rvr Blood Pressure : / mmHG Vent. Rate : 114 BPM Atrial Rate : 000 BPM P-R Int : 000 ms QRS Dur : 082 ms QT Int : 324 ms P-R-T Axes : 000 -61 165 degrees QTc Int : 446 ms Atrial fibrillation. with rapid ventricular response. Left axis deviation Inferior infarct (cited on or before 17-AUG-2018) ST & T wave abnormality, consider anterolateral ischemia Abnormal ECG When compared with ECG of 18-AUG-2018 06:50, (Unconfirmed) No significant change was found Confirmed by Claire HENDRIX, Abhishek Fang ([id number]) on 08/18/2018 8:08:30 AM
[2018-08-18] MEDS: HUMULIN R SUBQ SCH ×5 (07:40→21:35)
[2018-08-18] MEDS: LOVENOX SUBQ SCH ×2 (07:41→17:00)
--- NOTE | 2018-08-18 07:41 | EKG Report ---
Test Performed on : 08/17/2018 9:43:54 PM Test Reason : afib, elevated troponin Blood Pressure : / mmHG Vent. Rate : 133 BPM Atrial Rate : 156 BPM P-R Int : 000 ms QRS Dur : 084 ms QT Int : 360 ms P-R-T Axes : 000 -56 173 degrees QTc Int : 535 ms Atrial fibrillation. with rapid ventricular response. Left axis deviation Possible Inferior infarct (cited on or before 17-AUG-2018)(left axis?) ST & T wave abnormality, consider anterolateral ischemia Abnormal ECG When compared with ECG of 17-AUG-2018 17:15, (Unconfirmed) No significant change was found Confirmed by Claire HENDRIX, Abhishek Fang ([id number]) on 08/18/2018 8:06:53 AM
--- NOTE | 2018-08-18 07:43 | EKG Report ---
Test Performed on : 08/17/2018 3:25:33 PM Test Reason : CP Blood Pressure : / mmHG Vent. Rate : 127 BPM Atrial Rate : 122 BPM P-R Int : 000 ms QRS Dur : 084 ms QT Int : 390 ms P-R-T Axes : 000 -53 155 degrees QTc Int : 566 ms Atrial fibrillation. with rapid ventricular response. Left axis deviation Inferior infarct (cited on or before 17-AUG-2018) ST & T wave abnormality, consider anterolateral ischemia Abnormal ECG When compared with ECG of 17-AUG-2018 13:28, (Unconfirmed) No significant change was found Unconfirmed Result
--- NOTE | 2018-08-18 08:08 | EKG Report ---
Test Performed on : 08/17/2018 5:15:00 PM Test Reason : ED. NO EKG ORDER FOR MUSE Blood Pressure : / mmHG Vent. Rate : 129 BPM Atrial Rate : 208 BPM P-R Int : 000 ms QRS Dur : 078 ms QT Int : 362 ms P-R-T Axes : 000 -59 156 degrees QTc Int : 530 ms Atrial fibrillation. with rapid ventricular response. Left axis deviation Inferior infarct (cited on or before 17-AUG-2018) ST & T wave abnormality, consider anterolateral ischemia Abnormal ECG When compared with ECG of 17-AUG-2018 15:25, (Unconfirmed) No significant change was found Unconfirmed Result
[2018-08-18] MEDS ORDERED: ASPIRIN PO SCH (09:00)
--- NOTE | 2018-08-18 09:13 | HEMO/ONC CONSULTATION ---
DATE: 08/18/2018 CHIEF COMPLAINT: We are consulted for further management of patient's lung cancer. HISTORY OF PRESENT ILLNESS: Mr. Schulz is a 77-year-old male that presented to the office yesterday complaining of increased amounts of nausea, and vomiting, and feeling dehydrated. The patient stated when he started having nausea and vomiting, he was having some chest pain as well. Lab work was drawn in the office and showed a creatinine of 2.04, which is much more elevated than his baseline of 1.2, and was sent to the emergency department at the time for further evaluation. While patient was in the ER, he was evaluated and was found to have an elevated troponin. He was also found to have atrial fibrillation with RVR while in the emergency department, and he was hyperglycemic. He also had a urinalysis showing a possible urinary tract infection. The patient denies any fevers or chills and was admitted at that time for further evaluation. Mr. 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 PET scan also showed the mild right upper lobe subpleural nodularity, right hilar subcarinal, and peritracheal lymphadenopathy. He started on concurrent chemoradiation on 07/11/2018. The patient is getting concurrent carboplatin and Taxol. His last treatment was on 08/15/2018. PAST MEDICAL HISTORY: Type 2 diabetes, hypertension, recurrent pneumonia, Parkinsonism, and BPH. PAST SURGICAL HISTORY: Port-A-Cath placement, appendectomy, and left hip repair. ALLERGIES: No known drug allergies. SOCIAL HISTORY: He is tvmd-s-ibey-a-day smoker for over 50 years. Quit 5 weeks ago. Occasional beer. No illicit drug use. FAMILY HISTORY: Noncontributory. HOME MEDICATIONS: Tylenol #3, Lipitor, carbidopa/levodopa, hydrochlorothiazide , [place] 7.5, NovoLog, Lantus, Lopressor, omeprazole, polyethylene glycol. REVIEW OF SYSTEMS: Negative otherwise than what is mentioned in HPI. PHYSICAL EXAM: Vital Signs: Temperature 97.4 degrees, heart rate 116, respiratory rate 25, blood pressure 101/74, saturating 100% on nasal cannula. General: Patient is awake, lying in bed, no acute distress noted. HEENT: Anicteric. Pupils PERRLA. Mucous membranes dry. Neck: Supple. Trachea is midline. Lymph node survey: No palpable lymphadenopathy. Cardiovascular: Regular rate and rhythm, increased rate. Chest: Bilateral breath sounds, diminished bilaterally. Abdomen: Soft, nontender, nondistended. Bowel sounds present all 4 quadrants. No hepatosplenomegaly noted. Skin: Warm and dry. Chronic venous stasis to bilateral lower extremities. Neurologic: Alert and oriented x3. No focal deficits noted. LABORATORY DATA: White blood cell count 4.08, hemoglobin 9.6, hematocrit 29.4, platelets are 105. Potassium 4.7, BUN 46, creatinine 1.3. Troponin 2.66. ASSESSMENT AND PLAN: 1. 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 Last dose was on 08/15/2018. Continue to monitor once patient is discharged and back to baseline. Continue treatment at that time. 2. Lnu-NO-qxncybzfh myocardial infarction: Continue recommendations per Cardiology. 3. Hyperglycemia. Continue recommendations by primary medical team. 4. Acute kidney injury and possible chronic kidney disease: Continue with gentle hydration. Creatinine continues to improve. 5. Possible urinary tract infection: Continue recommendations per primary medical team. 6. Atrial fibrillation with rapid ventricular response. Continue recommendations per Cardiology. 7. Plan of care discussed with Dr. Calvo. Dictated by JEET Win for Osbaldo Calvo MD cc: JEET Win MD [facility]
[2018-08-18] MEDS ORDERED: VANCOMYCIN IV PER PHARMACY MISC SCH (09:30)
[2018-08-18] MEDS: MAXIPIME 1 GM in NS 50 ML IV SCH ×3 (09:55→22:32)
[2018-08-18] MEDS ORDERED: VANCOMYCIN 2 GM in NS 500 ML IV ONE (11:00)
[2018-08-18] MEDS: NORCO-7.5 PO PRN ×2 (11:32→18:44)
--- NOTE | 2018-08-18 11:53 | CARDIOLOGY CONSULTATION ---
DATE: 08/18/2018 CHIEF COMPLAINT ON PRESENTATION: Was apparently weakness. Sent over for evaluation to the ER via Dr. Calvo. HISTORY OF PRESENT ILLNESS: Mr. Schulz is a 77-year-old male with a history of paroxysmal atrial fibrillation. He presented to his radiation therapy MD for usual treatment yesterday and was for some reason sent over to Dr. Calvo for evaluation. At that point he was then sent over to the ER for further evaluation. I do not have any records indicating why. Patient apparently on Wednesday had an episode of discomfort under his bilateral chest area that felt like a bomb going off. There was no exertional component. It occurred at rest. The significant pain lasted for around 10 minutes but then persisted at a less severe amount for several hours. He did have some arm numbness with this but no breathing difficulties. No diaphoresis. He is not currently having any pain. PAST MEDICAL HISTORY: 1. Significant for type 2 diabetes. 2. Hypertension. 3. BPH. 4. Lung cancer, currently on radiation and chemotherapy via Dr. Calvo. 5. BPH. 6. Parkinson's. SOCIAL HISTORY: He is . His is present in the room. He previously was a half a pack a day smoker for more than 50 years; quit 5 weeks ago. REVIEW OF SYSTEMS: A 10 system review of systems was negative except for those things mentioned in the HPI. PHYSICAL EXAMINATION: Vital signs: Patient is afebrile. His heart rates are anywhere from the 100s to 120s. At the time my examination he was in the 120s to 130s. His blood pressure most recently is 105/69. Over the last several blood pressure checks most of them appear to be in the 90s to 110s. General: He is in no acute distress, pleasant. HEENT: Oropharynx is moist. Poor dentition. Eye examination shows pink conjunctivae, white sclerae. Neck: Examination shows no obvious thyromegaly or thyroid tenderness. Cardiovascular: He sounds to be in an irregularly irregular rhythm. He has no obvious murmurs. He has no S3. He has no lower extremity edema. Chest: Exam appears to be clear bilaterally. He has no increased work of breathing. Abdomen: Soft, nontender, nondistended. He has no obvious organomegaly. Skin: Warm and dry throughout, without any rashes. Neurological: He is moving all extremities well. He has no lateralizing deficits. PERTINENT DATA: His original EKG at 1525 yesterday demonstrated atrial fibrillation, rapid rate of 127 beats per minute. He does appear to have Q-waves in the inferior which appear to be new compared to his last EKG in June. His subsequent EKG at 1715 yesterday again unchanged from the initial at 1525 and his final EKG on the at 6:51 shows rapid atrial fibrillation, inferior Q-waves, rate in the 110s. Those were all reviewed by me. His chest x-ray this hospitalization demonstrates cardiomegaly. No clear evidence of pulmonary edema. His lab data shows a white count of 4, hematocrit 29, platelet count is 105,000. His sodium is 137, potassium 4.7, BUN 46, creatinine is 1.3. His cardiac enzymes have been markedly elevated. His initial was 2.9, peaked at 3.04, and subsequently it has come down to 2.6. His proBNP is 25,000. His lactate yesterday was 2.6. ASSESSMENT: Mr. Schulz is a 77-year-old gentleman who presented with rapid atrial fibrillation and appears to have suffered a myocardial infarction a couple of days ago, as evidenced by a new Q- waves on his EKG. PLAN: We will try to initiate medical therapy. He is not a candidate for the catheterization laboratory at this time given his significant delay in presentation. He is on aspirin and treatment dose Lovenox, which I agree with. He is on amiodarone. I have initiated metoprolol at 12.5 p.o. q.6 hours. He is relatively hypotensive. I have initiated statin therapy and the patient is currently on aspirin. We are awaiting the results of an echo. Further recommendations from there. cc: Gaetano Spicer MD
[2018-08-18 12:30] LABS: CK INDEX 8.4 (0.0-2.5); CK-MB 19.98 ng/mL (0.0-5.0)
[2018-08-18] MEDS: LOPRESSOR PO SCH ×2 (14:00→20:00)
[2018-08-18] MEDS: NEO-SYNEPHRINE 50 MG in NS 250 ML IV SCH (15:16)
[2018-08-18] MEDS: PROTONIX IV SCH (18:36)
--- NOTE | 2018-08-18 19:04 | PROGRESS NOTE ---
DATE: 08/18/2018 SUBJECTIVE: The patient is resting comfortably on the stretcher. He denies having any shortness of breath or chest pain. He does complain of back pain. His is present at the bedside. OBJECTIVE: Vital Signs: Temperature 97.9, blood pressure 90/76, heart rate 123, respiratory rate 22, O2 sats 98% on 2 L nasal cannula. General: This is a chronically ill-appearing elderly male lying in bed in no acute distress. Heart: S1, S2 normal. Irregularly irregular rhythm. Lungs: Coarse breath sounds with rhonchi. Abdomen: Positive bowel sounds. Soft, nontender, nondistended. Extremities: 1+ edema with chronic venous stasis. Neurologic: The patient is hard of hearing, but alert and oriented x 4. LABS: White blood cell count 4, hemoglobin 9.6, hematocrit 29, platelets 105,000. Sodium 137, potassium 4.7, chloride 101, CO2 23, BUN 46, creatinine 1.3, glucose 252, calcium 8.1, AST 77, ALT 32, alkaline phosphatase 94. Troponin 2. ProBNP 25,234. Blood cultures: One bottle is growing gram-positive cocci. ASSESSMENT AND PLAN: 1. Isj-KI-uizxqsenb GA. Continue on the current medications as indicated by the straightening machine operator. 2. Atrial fibrillation. The patient's heart rate is still in the 120s. We will continue on amiodarone. The straightening machine operator has added Lopressor. Continue on full-dose Lovenox. 3. Bacteremia. One bottle of the blood cultures is growing gram-positive cocci. We will continue with antibiotic therapy and follow up on the final culture results. 4. Urinary tract infection. Continue with broad-spectrum antibiotics. 5. Acute kidney injury. Improved. We will continue to monitor the patient's urine output closely. 6. Anemia. Will monitor the hemoglobin and hematocrit closely. 7. Diabetes mellitus type 2. We will start the patient on sliding scale insulin. 8. Parkinson disease. We will start the patient's home medications. 9. Lung cancer. Management as per Dr. Calvo. 10. GI prophylaxis. Continue on IV Protonix. cc: Fide James MD
[2018-08-18] MEDS ORDERED: ROCEPHIN 1 GM in NS 50 ML IV SCH (20:00)
[2018-08-18] MEDS ORDERED: LIPITOR PO SCH (21:00)
[2018-08-19] MEDS ORDERED: CORDARONE 540 MG in D5W 289.2 ML IV SCH ×2
[2018-08-19] MEDS: LOPRESSOR PO SCH ×3 (02:00→13:52)
[2018-08-19] MEDS: HUMULIN R SUBQ SCH ×3 (06:09→15:53)
[2018-08-19] MEDS: LOVENOX SUBQ SCH (06:09)
[2018-08-19] MEDS: NORCO-7.5 PO PRN ×2 (06:10→14:06)
[2018-08-19 06:40] LABS: EOS# 0.01 X1000 (0.0-0.7); EOS% 0.3 % (0.0-10.0); HEMATOCRIT 28.7 % (42.0-52.0); HEMOGLOBIN 9.4 g/dL (14.0-18.0); LYMPH# 0.32 X1000 (1.2-3.4); LYMPH% 9.4 % (20.5-51.1); MCH 32.8 PG (27-31); MCHC 32.8 g/dL (33-37); MONO# 0.14 X1000 (0.11-0.59); MONO% 4.1 % (1.7-9.3); NEUT# 2.94 X1000 (1.4-6.5); NEUT% 86.2 % (42.2-75.2); PLT 109 X1000 (130-400); RBC 2.87 XMIL (4.7-6.1); RDW 15.6 % (11.5-14.5); WBC 3.41 X1000 (4.8-10.8)
[2018-08-19 07:14] LABS: CALCIUM 8.2 mg/dL (8.8-10.2); CREATININE 1.3 mg/dL (0.7-1.2); POTASSIUM 4.3 mmol/L (3.5-5.1)
--- NOTE | 2018-08-19 07:16 | EKG Report ---
Test Performed on : 08/19/2018 06:53:47 AM Test Reason : nstemi, afib Blood Pressure : / mmHG Vent. Rate : 100 BPM Atrial Rate : 119 BPM P-R Int : 000 ms QRS Dur : 088 ms QT Int : 294 ms P-R-T Axes : 000 -55 156 degrees QTc Int : 379 ms Atrial fibrillation. Left axis deviation Inferior infarct (cited on or before 17-AUG-2018) ST & T wave abnormality, consider anterolateral ischemia Abnormal ECG When compared with ECG of 18-AUG-2018 06:51, No significant change was found Confirmed by Claire HENDRIX, Abhishek Fang ([id number]) on 08/19/2018 8:13:32 AM
--- NOTE | 2018-08-19 07:37 | Diag Imaging Result Doc PS360 ---
EXAM: CHEST-PORTABLE HISTORY: dyspnea TECHNIQUE: Chest single view COMPARISON: 08/18/2018 FINDINGS: The lungs are well expanded. The heart is mildly enlarged. No change in the right jugular line. The vessels are not distended. There are no infiltrates. No effusion identified. IMPRESSION: Mild cardiomegaly. Electronically signed by Ishan Bobo 08/19/2018 7:35 AM
--- NOTE | 2018-08-19 08:13 | HEMO/ONC PROGRESS NOTE ---
DATE: 08/19/2018 SUBJECTIVE: Patient denies any complaints at this time. The patient denies any shortness of breath or chest pain. OBJECTIVE: Vital Signs: Temperature 97.2 degrees, heart rate 109, respiratory rate 22, blood pressure 98/72. General: The patient is awake, lying in bed, in no acute distress noted. HEENT: Anicteric. Pupils PERRLA. Mucous membranes appear to be dry. Cardiovascular: Regular rate and rhythm. Lungs: Bilateral breath sounds coarse with rhonchi. Abdomen: Soft, nontender. Bowel sounds present all 4 quadrants. Neurologic: Alert and oriented x3. No focal deficits noted. LABORATORY DATA: White cell count 3.41, hemoglobin 9.4, hematocrit 28.7, platelets are 109. Potassium 4.3, BUN 39, creatinine 1.3. ASSESSMENT AND PLAN: 1. 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 Once patient is back to baseline, he will be discharged. We will work on getting restarted on his concurrent chemotherapy and radiation. 2. Kdi-ZS-cunlfpyek myocardial infarction: Continue recommendations per medical team and Cardiology. 3. Acute kidney injury and possible chronic kidney disease: Creatinine is back to baseline at this time at 1.3. Continue to monitor closely. 4. Atrial fibrillation. Continue amiodarone per Cardiology recommendations. 5. Bacteremia with cultures growing gram-positive cocci. Continue antibiotics as ordered by primary medical team. 6. Urinary tract infection. Continue antibiotics as ordered per primary medical team. 7. Anemia: Hemoglobin and hematocrit continue to be stable at this time. Continue to monitor closely. 8. Deep venous thrombosis prophylaxis. Continue Lovenox as ordered. 9. Plan of care discussed with Dr. Calvo. Dictated by JEET Win for Osbaldo Calvo MD cc: JEET Win MD
[2018-08-19] MEDS: NEO-SYNEPHRINE 50 MG in NS 250 ML IV SCH (08:18)
[2018-08-19] MEDS ORDERED: LANOXIN PO SCH (09:00)
[2018-08-19] MEDS ORDERED: ASPIRIN PO SCH (09:00)
[2018-08-19] MEDS: MAXIPIME 1 GM in NS 50 ML IV SCH (09:04)
--- NOTE | 2018-08-19 10:49 | ECHO REPORT ---
ORDER DATE: 08/18/2018 MEASUREMENTS: 1. Left ventricular end-diastolic 5.2. 2. End systolic diameter 4.9. 3. Septal thickness 0.9. 4. Posterior wall thickness 0.9. 5. Aortic root 2.9. 6. Left atrium 3.1. SUMMARY: 1. Technically difficult study due to limited acoustic window quality. Intravenous echo contrast agent, Definity, was utilized to enhance endocardial definition. 2. Aortic valve is trileaflet and opens adequately on 2-dimensional images. Peak gradient across the aortic valve is less than 10 mmHg. Mitral and tricuspid valves are without evidence of structural abnormality while pulmonic valves all demonstrated. There is mild tricuspid regurgitation. The estimated systolic PA pressure by Doppler is 35 mmHg. The aortic root is normal size. 3. Normal left ventricular dimensions suggested. Estimated left ventricular ejection fraction is approximately 20%. There is severe hypokinesis to akinesis of the pwu-ab-mwyfff anteroseptal wall, ecb-bz-jsdywr anterior wall. There is hypokinesis of the apex. The fay-nb-bztuyk lateral wall is akinetic. Underlying severe ischemic cardiomyopathy is suggested. Left atrium is normal size. The right atrium and right ventricle are grossly in normal size with grossly preserved right ventricular systolic function. 4. No pericardial effusion. 5. Appearance of inferior vena cava suggests normal central venous pressure. CONCLUSIONS: 1. Technically difficult study. 2. Mild tricuspid regurgitation with mild pulmonary hypertension by Doppler. 3. Estimated left ejection fraction approximately 20% with multiple wall motion abnormalities, as described suggesting severe ischemic cardiomyopathy. cc: Everardo Nunes MD
[2018-08-19] MEDS ORDERED: VANCOMYCIN 1,700 MG in NS 250 ML IV SCH (11:00)
--- NOTE | 2018-08-19 12:47 | CARDIOLOGY PROGRESS NOTE ---
DATE: 08/19/2018 SUBJECTIVE: Mr. Schulz is not having episodes of chest pain. He did have some mild shortness of breath over the evening. He denies any orthopnea. He has had no heart racing. OBJECTIVE: Vital Signs: On physical, this patient is afebrile. His heart rates have improved in the last 12 hours or so. This seemed to be running more often in the 70s to 90s. His blood pressure is 93/67. General: Generally, he is in no acute distress. Cardiovascular: He sounds to be in an irregularly irregular rhythm that appears on telemetry to be rate controlled atrial fibrillation. He has trace bilateral lower extremity edema and warm and well perfused extremities. Chest: His chest exam sounds clear. He has no increased work of breathing. Abdomen: Soft, nontender. PERTINENT DATA: His sodium is 134, potassium 4.3, BUN 39 and creatinine is 1.3. ASSESSMENT: Mr. Schulz is a 77-year-old gentleman, who suffered a myocardial infarction at home a few days prior to presentation. PLAN: His echocardiogram shows an EF of 20% which is new for this patient. He has severe hypokinesis to akinesis of the anterior septum, as well as portions of the apex and the lateral wall. He is currently on medical therapy. I am concerned about this patient considering his blood pressure issues, and he does appear to be progressing into heart failure. We will try to initiate a potential transfer over to [facility] as I believe he is at risk for potential deterioration in his condition in the next 24-48 hours requiring interventions not available at this hospital. We are limited in the pharmacologic interventions given his relative hypotension. I am holding off any inotropes considering his recent DC and I am concerned that we will have issues with rapid afib again with initiation of pressors. He appears to be perfusing and not in need of these interventions presently. cc: MD SAMANTHA Blanchard
[2018-08-19 13:49] LABS: ALLEN TEST YES; BE -4.7 mmoll (-3.0-3.0); BLOOD TYPE ARTERIAL; HCO3-(ACT) 21.2 mmoll (20.0-26.0); METHB 0.8 % (0.0-1.5); MODALITY CANNULA; O2(CT) 11.5 mL/dL (15.0-23.0); O2HB 94.8 % (95.0-99.0); PCO2(98.6) 36 mmHg (35-45); PO2(98.6) 102 mmHg (60-100); SAMPLE BLOOD; SAO2 98.5 % (95.0-100.0); THB 8.5 g/dL (11.5-17.4); pH(98.6) 7.36 (7.35-7.45)
[2018-08-19 16:26] VITALS: BP 110/74
--- NOTE | 2018-08-20 02:01 | DISCHARGE SUMMARY ---
ADMISSION DATE: 08/17/2018 DISCHARGE DATE: 08/19/2018 FINAL DISCHARGE DIAGNOSES: 1. Acute myocardial infarction. 2. Suspected cardiogenic shock. 3. Atrial fibrillation with rapid ventricular response. 4. Sepsis secondary to urinary tract infection. 5. Pancytopenia status post chemotherapy. 6. Stage III lung cancer status post chemoradiation. 7. Cardiomyopathy. 8. Acute kidney injury. 9. Diabetes mellitus type 2. 10. Urinary tract infections secondary to gram-negative rods. CONSULTATIONS: 1. Cardiology consultation with Dr. Spicer. 2. Oncology consultation with Dr. Calvo. IMAGIN. Portable chest x-ray performed on 08/17/2018 that revealed a decrease in the right upper lobe nodule. 2. Chest x-ray performed on 08/18/2018 that revealed cardiomegaly. 3. Echocardiogram performed on 08/18/2018 that revealed an ejection fraction of 20%. Severe hypokinesis to akinesis in the mid to apical anterior septal wall, mid to apical anterior wall. Hypokinesis of the apex. Severe ischemic cardiomyopathy. HOSPITAL COURSE: Mr. Schulz is a 77-year-old male with a stage III lung cancer status post chemoradiation on 08/15/2018, as well as tobacco dependence and diabetes who presented to the ER with chest pain. Upon arrival to the ER the patient was noted to be in atrial fibrillation with RVR, with heart rates in the 120s to 150s. Cardiac enzymes were done that revealed a troponin of 2.9. Cardiology was immediately consulted, also, an EKG done revealed Q-waves in the inferior leads. The patient was given aspirin and started on full dose Lovenox. Cardizem was started to try and control the patient's rate; however, the blood pressure dropped and so amiodarone was instituted instead and the Cardizem was weaned off. The patient was seen by the compensator who recommended the current level of treatment. Josh-synephrine was started for blood pressure support. The patient was also started on broad spectrum antibiotics. On 08/19/2017, a chest x-ray was done that revealed pulmonary edema and on exam the patient appeared to be in heart failure. There was concern about possible cardiogenic shock. The case was discussed with Dr. Irlanda García and Dr. Solis at [facility], and they both accepted the patient for transfer to their medical ICU for further cardiovascular evaluation and treatment. This was discussed with the patient and his who initially declined to be transferred, but then after a family meeting decided to go forth with transfer to [facility]. The patient will be transferred to [facility] this afternoon. cc: Rod Holloway MD MTDD
== END 2018-08-19 16:25 | disposition short-term general hospital (02) | DRG 871 ==
LOC: ED 13:17 → EDIPHOLD 19:44
PROVIDERS: ATTEND Internal Medicine
CPT/HCPCS: 71010; 71045; 80048; 80053; 80061; 80162; 81001; 82009; 82550; 82553; 82805; 82948; 83605; 83735; 83880; 84484; 85025; 85610; 85730; 87040; 87077; 87088; 87186; 87275; 87276; 87804; 93005; 93306; A9270; C8929; C9113; J0282; J0692; J0696; J1160; J1650; J2370; J3370; J7030; J7040; J7050; J7060; Q9957; S0164; XXXXX